=== PATIENT | male | born 1955 | race Caucasian/White ===

== ENCOUNTER 2023-08-14 13:16 | Emergency (ER) | payer OTHER, MEDICARE, SELFPAY ==
[2023-08-14 13:18] VITALS: BP 133/62
[2023-08-14 13:19] VITALS: BP 133/62
[2023-08-14 13:24] LABS: Glucose - Point of Care 346 mg/dl (70-99)
[2023-08-14 13:34] LABS: % Basophils 0.8 % (0-2); % Immature Granulocytes 0.1 % (0-0.5); % Monocytes 6.9 % (1.7-9.3); % Neutrophils 73.2 % (42.2-75.2); Absolute Basophils 0.1 10^3/uL (0-0.2); Absolute Eosinophils 0.1 10^3/uL (0-0.7); Absolute Lymphocytes 1.4 10^3/uL (1.2-3.4); Absolute Monocytes 0.5 10^3/uL (0.1-0.6); Absolute Neutrophils 5.6 10^3/uL (1.4-6.5); Hematocrit 36.3 % (39.0-52.0); Hemoglobin 12.9 g/dL (13.0-18.0); Mean Corp Hgb Conc. 35.5 g/dL (33.0-37.0); Mean Corpuscular Hgb 30.9 pg (27.0-31.0); Mean Corpuscular Volume 86.8 fL (80.0-94.0); Nucleated Red Blood Cells % 0 % (-); Platelet Count 205 10^3/uL (130-400); Red Blood Cell Count 4.18 10^6/uL (4.70-6.10); Red Cell Dist. Width 12.6 % (11.5-14.5); White Blood Cell Count 7.7 10^3/uL (4.8-10.8)
--- NOTE | 2023-08-14 13:54 | PHANOTE ---
Addendum entered by Isaura Matthews 08/14/23 14:44:
called retirement again only receive page for patient NovoLog one time dose today at 08/14/23 14units daily, page 2 was a double and page 3 was blank, spoke to viola again, she send she sent 7 pages totally but cover sheet say 3 only
Original Note:
med rec note- called retirement at [phone] spoke to viola and she we be faxing over med list
[2023-08-14 13:56] LABS: Blood Urea Nitrogen 27 mg/dl (9-20); Calcium 8.9 mg/dl (8.4-10.2); Carbon Dioxide 20 mmol/L (22-30); Chloride 105 mmol/L (98-107); Estimated Creatinine Clearance 115 ml/min; Glucose 349 mg/dl (70-99); Sodium 134 mmol/L (135-145); eGFR > 60.00
[2023-08-14 13:59] LABS: B-Hydroxybutyrate 0.13 mmol/L (0.02-0.27)
[2023-08-14 14:00] VITALS: BP 124/55
--- NOTE | 2023-08-14 14:45 | ED.GENMED ---
History of Present Illness
General
Chief Complaint: Blood Sugar Problem
Time Seen by Provider: 08/14/23 13:32
Travel History
Have you had any contact with someone who has COVID-19?: No
Do you have any symptoms of coronavirus? Fever > 100 degrees, chills, cough, shortness of breath, sore throat, loss of taste or smell, muscle aches, or headache?: No
History of Present Illness
History of Present Illness:
68-year-old male presents to the emergency department from [facility] due to high blood sugar. He denies complaints and states he requested not to come here. Blood sugar was apparently in the 500s this morning, was given 14
units of regular insulin and on arrival his blood sugar is 346. He denies any polyuria, polydipsia, chest pain, shortness of breath, nausea, vomiting, or dizziness.
Past History
Past History
ED Past Medical History: COPD, CVA, HTN, Hypercholesterolemia, IDDM and Psychiatric (Depression)
ED Past Surgical History: Appendectomy and Orthopedic
Social History
Tobacco: Non-smoker
Alcohol: None
Drug: None
Living: intermediate
Review of Systems
Review of Systems
Allergies reviewed?: Yes
All Other Systems: ROS reviewed and negative except as documented in HPI and ROS
Phy Exam
Physical Exam
Physical Exam:
GEN: Well appearing, NAD, WDWN
HEENT: Oral mucosa moist, no scleral icterus
Cardiac: Regular rate
Lung: No respiratory distress, no tachypnea
MSK: No gross deformity or injuries
Skin: Good color, no pallor or jaundice, no rashes
Neuro: AO x3, moves all extremities freely
Psych: Calm, cooperative
Course
Orders/Labs/Results
Orders:
Orders
08/14/23 13:27
B-Hydroxybutyrate Urgent
Basic Metabolic Panel Urgent
Complete Blood Count/With Diff Urgent
08/14/23 13:48
0.9% Sodium Chloride 1000 ml [Nss] 1,000 ml IV BOLUS
Insulin Aspart [NOVOLOG vial] 12 units SC NOW STA
08/14/23 14:46
Lorazepam [Ativan] 1 mg PO NOW STA
08/14/23 15:51
Bedside Glucose- Treatment ONCE
Abnormal Lab Results
08/14/23 08/14/23 08/14/23
13:22 13:27 15:54
RBC 4.18 L 10^6/uL
(4.70-6.10)
Hgb 12.9 L g/dL
(13.0-18.0)
Hct 36.3 L %
(39.0-52.0)
MPV 11.0 H fL
(7.4-10.4)
Lymphocytes % 18.0 L %
(20.5-51.1)
Sodium 134 L mmol/L
(135-145)
Carbon Dioxide 20 L mmol/L
(30)
BUN 27 H mg/dl
(03-13)
Glucose 349 H mg/dl
(99)
POC Glucose 346 H mg/dl 129 H mg/dl
(99) (70-99)
08/14/23 08/14/23 08/14/23
17:04 17:26 17:40
RBC
Hgb
Hct
MPV
Lymphocytes %
Sodium
Carbon Dioxide
BUN
Glucose
POC Glucose 66 L mg/dl 54 L* mg/dl 110 H mg/dl
(70-99) (70-99) (70-99)
08/14/23 13:27
08/14/23 13:27
Vital Signs
Initial and Last Documented VS:
Initial Vital Signs
BP
133/62
08/14/23 13:18
Last Documented Vital Signs
Temp Pulse Resp BP Pulse Ox
98.0 F 64 18 124/55 96
08/14/23 13:19 08/14/23 14:45 08/14/23 14:45 08/14/23 14:00 08/14/23 14:45
MDM/Problems Addressed
MDM/Problems Addressed:
After initial labs revealing normal anion gap and no evidence for acidosis the patient was given 12 units subcutaneous insulin according to his previous sliding scale. He was provided with food however the patient declined to eat. Repeat Accu-Chek
showed a blood sugar of 129, the patient was then encouraged to eat and drink the food provided to him however he again declined and repeat Accu-Chek 1 hour later was 66. The patient was then reinforced the importance of eating and drinking when
she finally obliged, he did have a period of hypoglycemia at 54 with no symptoms however repeat Accu-Chek prior to discharge was 110. Patient did consume further orange juice before the 110 was assessed. Given that we are well beyond 2 hours post
administration of his regular insulin his sugar will likely not dip any further and he is suitable for discharge back to his facility.
*Critical Care Note
Total Time (30-74mins, 75-104mins- exclusive of procedures): Not Applicable
ED Attending Note
-
Portions of this chart may have been created with voice recognition software.� Occasional wrong word or��sound alike� substitutions may have occurred due to the inherent limitations of voice recognition software.
Discharge Plan
Departure
Patient Disposition: Home (Routine Discharge)
Date of Disposition: 08/14/23
Time of Disposition: 16:20
Patient with high blood pressure during this ER visit?: No
Discharge Problem:
Acute hyperglycemia
Instructions: High Blood Sugar, Adult (DC)
Prescriptions:
No Action
sennosides [senna] 8.6 mg Tablet
17.2 mg PO HS
acetaminophen [Tylenol] 325 mg Tablet
650 mg PO Q4HPRN PRN (Reason: mild pain)
carvedilol [Coreg] 12.5 mg Tablet
12.5 mg PO BID
lidocaine 4 % Adhesive Patch,Medicated
1 patch TOPICAL BID
polyethylene glycol 3350 [Miralax] 17 gram Powder In Packet
17 g PO DAILYPRN PRN (Reason: constipation)
sucralfate [Carafate] 100 mg/mL Suspension
10 ml PO Q6H
lisinopril 20 mg Tablet
20 mg PO DAILY
ondansetron HCl [Zofran] 4 mg Tablet
4 mg PO Q6HPRN PRN (Reason: nausea)
meclizine 12.5 mg Tablet
12.5 mg PO Q8HPRN PRN (Reason: dizziness)
meclizine 12.5 mg Tablet
12.5 mg PO DAILY
clopidogrel [Plavix] 75 mg Tablet
75 mg PO DAILY
lorazepam 0.5 mg Tablet
0.5 mg PO BID
metoclopramide HCl [Reglan] 5 mg Tablet
5 mg PO TID
magnesium hydroxide [Milk of Magnesia] 400 mg/5 mL Suspension
2,400 mg PO [id number] PRN (Reason: if no bm on 3rd day)
amlodipine [Norvasc] 10 mg Tablet
10 mg PO DAILY
levothyroxine [Synthroid] 50 mcg Tablet
50 mcg PO DAILY
bisacodyl [Dulcolax (bisacodyl)] 10 mg Suppository
10 mg [place] DAILYPRN PRN (Reason: if no bm aftr mom)
pantoprazole [Protonix] 40 mg Tablet,Delayed Release (Dr/Ec)
40 mg PO DAILY
ferrous sulfate 325 mg (65 mg iron) Tablet
325 mg PO DAILY
Fleet Enema 19-7 gram/118 mL Enema
118 ml [place] DAILYPRN PRN (Reason: if no bm aftr dulcolax)
docusate sodium [Colace] 100 mg Capsule
200 mg PO DAILY
buspirone 7.5 mg Tablet
7.5 mg PO BID
ezetimibe [Zetia] 10 mg Tablet
10 mg PO HS
rosuvastatin [Crestor] 40 mg Tablet
40 mg PO HS
insulin glargine [Lantus Solostar U-100 Insulin] 100 unit/mL (3 mL) Insulin Pen
25 unit SC QPM
melatonin 5 mg Tablet
5 mg PO HS
baclofen 5 mg Tablet
5 mg PO Q8HPRN PRN (Reason: spasms)
sertraline 150 mg Capsule
150 mg PO DAILY
oxycodone-acetaminophen [Percocet] 5-325 mg tablet
1 tab PO Q8HPRN PRN (Reason: moderate pain)
oxycodone-acetaminophen 5-325 mg tablet
1 tab PO Q4H PRN (Reason: pain) Qty: 10 0RF
metformin 500 mg Tablet
500 mg PO BID
insulin aspart U-100 [Novolog FlexPen U-100 Insulin] 100 unit/mL (3 mL) Insulin Pen
1 sliding scale dose SC AC
Referrals:
Jus Cárdenas MD [Family Provider] -
Interventions
Interventions:
*Risk Screen - Suicide Last Done: 08/14/23 13:19
*General Assessment Last Done: 08/14/23 13:19
*Neglect/Abuse Screening Last Done: 08/14/23 13:19
ED- Fall Risk Assessment Last Done: 08/14/23 13:19
*ED COVID-19 Vaccine History Last Done: 08/14/23 17:40
*Nursing Disposition Last Done: 08/14/23 17:40
ED- Neurological Assessment Last Done: 08/14/23 15:59
Discharge Date and Time
Discharge Date/Time: 08/14/23 17:40
[2023-08-14] MEDS: NOVOLOG vial 12 UNITS SC (14:47)
[2023-08-14] MEDS: ATIVAN 1 MG PO (14:50)
[2023-08-14] MEDS: NSS 1000 IV (14:50)
[2023-08-14 15:56] LABS: Glucose - Point of Care 129 mg/dl (70-99)
[2023-08-14 17:05] LABS: Glucose - Point of Care 66 mg/dl (70-99)
[2023-08-14 17:29] LABS: Glucose - Point of Care 54 mg/dl (70-99)
[2023-08-14 17:41] LABS: Glucose - Point of Care 110 mg/dl (70-99)
== END 2023-08-14 17:40 | disposition home or self-care (01) ==
LOC: EMR 13:16
PROVIDERS: Emergency Medicine; EMERGENCY PHYSICIAN Emergency Medicine; FAMILY PHYSICIAN Internal Medicine
DX: E11.65 Type 2 diabetes mellitus with hyperglycemia (principal); Z79.4 Long term (current) use of insulin
CPT/HCPCS: 99284; 96360; 96372; 80048; 82010; 82962; 85025

== ENCOUNTER 2024-02-04 16:12 | Emergency (ER) | payer MEDICARE, OTHER, SELFPAY ==
[2024-02-04] VITALS (8 sets, daily range): BP systolic 117–160; BP diastolic 56–98; BMI 33.9
[2024-02-04 16:18] LABS: Glucose - Point of Care 90 mg/dl (70-99)
[2024-02-04 16:53] LABS: Glucose - Point of Care 92 mg/dl (70-99)
--- NOTE | 2024-02-04 17:02 | ED.GENMED ---
History of Present Illness
General
Chief Complaint: Blood Sugar Problem
Source: patient, ambulance crew, group home and group home records
Exam Limitations: altered mental status
Time Seen by Provider: 02/04/24 16:48
History of Present Illness
History of Present Illness:
68-year-old male from [facility] for low blood sugar
Patient with history of CVA, COPD, HTN, HLD, IDDM, PVD, anemia, anxiety/depression, past history of alcohol abuse presents via EMS obtunded.
I spoke with nursing salon supervisor Bianca at [facility]. She states that staff came into patient's room to find him unresponsive, had urinated all over himself, he was cold and clammy sugar checked it was 45, gave glucagon at 3:28 PM, glucose was
then 60, remained obtunded. EMS arrived and gave dextrose 50 g x 2 and a peanut butter jelly sandwich, glucose remained in the 60s. On arrival here glucose is 90, patient remains obtunded
She states he is typically alert and oriented, conversive, wheels himself around in his wheelchair. She states this is a definite mental change for him
When asked how he feels he states 1 'weak' and drifts back off to sleep.
Past History
Past History
ED Past Medical History: COPD, CVA, HTN, Hypercholesterolemia, IDDM and Psychiatric (Depression)
ED Past Surgical History: Appendectomy and Orthopedic
Social History
Tobacco: Non-smoker
Alcohol: None
Drug: None
Personal: Single
Living: group home
Review of Systems
Review of Systems
Allergies reviewed?: Yes
All Other Systems: ROS reviewed and negative except as documented in HPI and ROS
Constitutional: Denies fever
Respiratory: Denies trouble breathing
Cardiac: Denies chest pain
ABD/GI: Denies abdominal pain, vomiting or diarrhea
: Reports incontinence
Musculoskeletal: Reports edema (+1 pitting bilateral ankles)
Skin: Reports no symptoms
Neurological: Denies headache
Phy Exam
Physical Exam
Physical Exam:
GENERAL: No acute distress. A&Ox3.
CONSTITUTIONAL: Afebrile.
EYES: PERRL, conjunctivae normal
ENMT: dry mucus membranes, Pharynx nl
RESPIRATORY: Regular respirations, nonlabored, lungs clear.
CARDIOVASCULAR: Regular rate and rhythm, no murmurs, no rubs.
GI: Soft, obese, nontender, normal BS
MUSCULOSKELETAL: Well perfused. Bilateral +1 pitting ankles
SKIN: Warm, dry, pink
PSYCH: Depressed mood and affect. Sluggishly responds to questions, answers seem appropriate
NEUROLOGIC: Lethargic, follow commands, no focal neuro deficits. No focal neurological deficits
Course
Orders/Labs/Results
Orders:
Orders
02/04/24 17:10
Straight cath- Treatment ONCE
02/04/24 17:11
CT Head W/o Iv Contrast Urgent
Comment:
Reason For Exam: change in mental state
02/04/24 17:30
Complete Blood Count/With Diff Urgent
Comprehensive Metabolic Panel Urgent
Urinalysis Reflex To Culture Urgent
Date Specimen was Collected: 02/04/24
Time Specimen was Collected: 17:28
02/04/24 18:10
0.9% Sodium Chloride 500 ml [Nss] 500 ml IV BOLUS
Abnormal Lab Results
02/04/24 02/04/24 02/04/24
17:30 18:11 23:12
MPV 11.6 H fL
(7.4-10.4)
Absolute Monos (auto) 0.7 H 10^3/uL
(0.1-0.6)
Neutrophils % 75.4 H %
(42.2-75.2)
Lymphocytes % 15.5 L %
(20.5-51.1)
BUN 29 H mg/dl
(9-20)
Urine Bilirubin 1+ A
(Negative)
Urine Glucose Trace A
(Negative)
POC Glucose 182 H mg/dl 107 H mg/dl
(70-99) (70-99)
02/04/24 17:30
02/04/24 17:30
Vital Signs
Initial and Last Documented VS:
Initial Vital Signs
Pulse Resp BP Pulse Ox
65 18 143/98 99
02/04/24 16:15 02/04/24 16:15 02/04/24 16:15 02/04/24 16:15
Last Documented Vital Signs
Temp Pulse Resp BP Pulse Ox
97.5 F 80 19 149/70 95
02/04/24 18:14 02/05/24 00:00 02/05/24 00:00 02/04/24 23:00 02/04/24 23:30
MDM/Problems Addressed
Differential Diagnosis Includes:
hypoglycemia, CVA, UTI, dehydration
MDM/Problems Addressed:
68-year-old male from [facility] for low blood sugar
Patient with history of CVA, COPD, HTN, HLD, IDDM, PVD, anemia, anxiety/depression, past history of alcohol abuse presents via EMS obtunded.
I spoke with nursing salon supervisor Bianca at [facility]. She states that staff came into patient's room to find him unresponsive, had urinated all over himself, he was cold and clammy sugar checked it was 45, gave glucagon at 3:28 PM, glucose was
then 60, remained obtunded. EMS arrived and gave dextrose 50 g x 2 and a peanut butter jelly sandwich, glucose remained in the 60s. On arrival here glucose is 90, patient remains obtunded
She states he is typically alert and oriented, conversive, wheels himself around in his wheelchair. She states this is a definite mental change for him
When asked how he feels he states 1 'weak' and drifts back off to sleep.
5:20 PM:
And undressing patient to get his vital signs, he becomes more alert, he denies chest pain, shortness of breath, abdominal pain or nausea. Knows he's 'in the hospital' states '[place].' States 'blood sugar' when asked why he's here.
6:10 p.m.
Bedside glucose 182
Pt remains awake, appropriate
Head CT no acute findings
*Critical Care Note
Total Time (30-74mins, 75-104mins- exclusive of procedures): Not Applicable
ED Attending Note
-
Portions of this chart may have been created with voice recognition software.� Occasional wrong word or��sound alike� substitutions may have occurred due to the inherent limitations of voice recognition software.
Discharge Plan
Departure
Patient Disposition: [facility]/SNF
Date of Disposition: 02/04/24
Time of Disposition: 21:16
Patient with high blood pressure during this ER visit?: No
Condition: Good
Discharge Problem:
Hypoglycemia associated with diabetes
Instructions: Low blood sugar in people with diabetes
Prescriptions:
No Action
acetaminophen [Tylenol] 325 mg Tablet
650 mg PO Q4HPRN PRN (Reason: temp>100F)
carvedilol [Coreg] 12.5 mg Tablet
12.5 mg PO BID
lidocaine 4 % Adhesive Patch,Medicated
1 patch TOPICAL DAILY
meclizine 12.5 mg Tablet
12.5 mg PO DAILY
clopidogrel [Plavix] 75 mg Tablet
75 mg PO DAILY
lorazepam 0.5 mg Tablet
0.25 mg PO BID
magnesium hydroxide [Milk of Magnesia] 400 mg/5 mL Suspension
30 ml PO [id number] PRN (Reason: if no bm x 3 days)
amlodipine [Norvasc] 10 mg Tablet
10 mg PO DAILY
levothyroxine [Synthroid] 50 mcg Tablet
50 mcg PO DAILY
bisacodyl [Dulcolax (bisacodyl)] 10 mg Suppository
10 mg [place] DAILYPRN PRN (Reason: if mom is ineffective after 24hrs)
ferrous sulfate 325 mg (65 mg iron) Tablet
325 mg PO DAILY
Fleet Enema 19-7 gram/118 mL Enema
118 ml [place] DAILYPRN PRN (Reason: if dulcolax is ineffective after 24hrs)
docusate sodium [Colace] 100 mg Capsule
100 mg PO [id number] PRN (Reason: constipation)
ezetimibe [Zetia] 10 mg Tablet
10 mg PO HS
rosuvastatin [Crestor] 40 mg Tablet
40 mg PO HS
insulin glargine [Lantus Solostar U-100 Insulin] 100 unit/mL (3 mL) Insulin Pen
15 unit SC HS
insulin aspart U-100 [Novolog FlexPen U-100 Insulin] 100 unit/mL (3 mL) Insulin Pen
4 sliding scale dose SC AC
acetaminophen 325 mg Tablet
650 mg PO [id number] PRN (Reason: mild pain)
divalproex 250 mg tablet,delayed release (DR/EC)
250 mg PO DAILY
sucralfate 1 gram tablet
1 g PO DAILY
sertraline 100 mg tablet
100 mg PO DAILY
Guaifenesin DM 10-200 mg/5 mL Liquid
10 ml PO Q6HPRN PRN (Reason: cough)
divalproex 500 mg tablet,delayed release (DR/EC)
500 mg PO HS
pantoprazole 20 mg Tablet,Delayed Release (Dr/Ec)
20 mg PO DAILY
buspirone 10 mg tablet
10 mg PO TID
ibuprofen 200 mg Tablet
200 mg PO Q8HPRN PRN (Reason: mild to moderate pain)
lisinopril 40 mg Tablet
40 mg PO DAILY
sertraline 50 mg tablet
50 mg PO DAILY
insulin aspart U-100 [Novolog FlexPen U-100 Insulin] 100 unit/mL (3 mL) Insulin Pen
0 - 20 sliding scale dose SC ACHS
Rx Instructions:
if 70-99= 0; 100-149= 6; 150-199= 10; 200-249= 12; 250-299= 14; 300-349= 16; 350-399= 18; 400+ = 20
oxycodone 10 mg Tablet
10 mg PO Q8HPRN PRN (Reason: severe pain)
cholecalciferol (vitamin D3) 125 mcg (5,000 unit) Tablet
125 mcg PO DAILY
melatonin 10 mg Tablet
10 mg PO HS
Referrals:
Jus Cárdenas MD [Family Provider] -
Activity Restrictions/Additional Instructions:
Mr. Mahan blood sugar on discharge is 182.
He is awake, appropriate
Head CT unremarkable
His blood work shows mild dehydration so encourage fluids
Nothing worrisome in his workup here today.
Interventions
Interventions:
*Risk Screen - Suicide Last Done: 02/04/24 16:26
*General Assessment Last Done: 02/04/24 16:26
*Neglect/Abuse Screening Last Done: 02/04/24 16:26
ED- Fall Risk Assessment Last Done: 02/04/24 16:27
*ED COVID-19 Vaccine History Last Done: 02/04/24 16:26
*Nursing Disposition Last Done: 02/05/24 00:20
ED- Neurological Assessment Last Done: 02/04/24 16:26
Discharge Date and Time
Discharge Date/Time: 02/05/24 00:20
Print Language: MALIAN
[2024-02-04 17:37] LABS: % Basophils 0.3 % (0-2); % Immature Granulocytes 0.3 % (0-0.5); % Lymphocytes 15.5 % (20.5-51.1); % Monocytes 7.5 % (1.7-9.3); % Neutrophils 75.4 % (42.2-75.2); Absolute Eosinophils 0.1 10^3/uL (0-0.7); Absolute Lymphocytes 1.3 10^3/uL (1.2-3.4); Absolute Monocytes 0.7 10^3/uL (0.1-0.6); Absolute Neutrophils 6.5 10^3/uL (1.4-6.5); Hematocrit 42.9 % (39.0-52.0); Hemoglobin 14.8 g/dL (13.0-18.0); Mean Corp Hgb Conc. 34.5 g/dL (33.0-37.0); Mean Corpuscular Hgb 30.6 pg (27.0-31.0); Mean Corpuscular Volume 88.8 fL (80.0-94.0); Mean Platelet Volume 11.6 fL (7.4-10.4); Nucleated Red Blood Cells % 0 % (-); Platelet Count 234 10^3/uL (130-400); Red Blood Cell Count 4.83 10^6/uL (4.70-6.10); Red Cell Dist. Width 12.8 % (11.5-14.5); White Blood Cell Count 8.6 10^3/uL (4.8-10.8)
[2024-02-04 17:40] LABS: Urine Albumin Negative (Neg - Trace); Urine Bilirubin 1+ (Negative); Urine Character Clear (Clear); Urine Color Yellow; Urine Glucose Trace (Negative); Urine Ketone Negative (Negative); Urine Leukocyte Negative (Negative); Urine Nitrite Negative (Negative); Urine Occult Blood Negative (Negative); Urine Specific Gravity 1.015 (<1.030); Urine Urobilinogen Negative (Neg - 1+)
[2024-02-04 17:59] LABS: ALT (SGPT) 44 U/L (0-50); AST (SGOT) 37 U/L (17-59); Albumin 4.1 g/dl (3.5-5.0); Alkaline Phosphatase 91 U/L (38-126); Blood Urea Nitrogen 29 mg/dl (9-20); Calcium 9.1 mg/dl (8.4-10.2); Carbon Dioxide 30 mmol/L (22-30); Chloride 102 mmol/L (98-107); Estimated Creatinine Clearance 74 ml/min; Glucose 72 mg/dl (70-99); Potassium 4.5 mmol/L (3.5-5.1); Sodium 140 mmol/L (135-145); Total Bilirubin 0.3 mg/dl (0.2-1.3); Total Protein 6.4 g/dl (6.3-8.2); eGFR > 60.00
[2024-02-04 18:12] LABS: Glucose - Point of Care 182 mg/dl (70-99)
[2024-02-04 23:13] LABS: Glucose - Point of Care 107 mg/dl (70-99)
== END 2024-02-05 00:20 ==
LOC: EMR 16:12
PROVIDERS: Registered Nurse; EMERGENCY PHYSICIAN Emergency Medicine; FAMILY PHYSICIAN Internal Medicine
DX: E11.649 Type 2 diabetes mellitus with hypoglycemia without coma (principal); J44.9 Chronic obstructive pulmonary disease, unspecified; I10 Essential (primary) hypertension; E78.00 Pure hypercholesterolemia, unspecified; E11.51 Type 2 diabetes mellitus with diabetic peripheral angiopathy without gangrene; F41.8 Other specified anxiety disorders; Z86.73 Personal history of transient ischemic attack (TIA), and cerebral infarction without residual deficits; Z90.49 Acquired absence of other specified parts of digestive tract
CPT/HCPCS: 99284; 70450; 80053; 81003; 82962; 85025

== ENCOUNTER → 2024-09-10 15:02 | Outpatient (REF) | payer MEDICARE, OTHER, SELFPAY | LOC: RAD 15:02 | PROVIDERS: ATTENDING PHYSICIAN Internal Medicine; FAMILY PHYSICIAN Internal Medicine | DX: R41.82 Altered mental status, unspecified (principal) | CPT/HCPCS: 70450 ==

== ENCOUNTER 2024-09-11 11:42 | Emergency (ER) | payer MEDICARE, OTHER, SELFPAY ==
[2024-09-11] VITALS (7 sets, daily range): BP systolic 112–145; BP diastolic 57–68
[2024-09-11 11:47] LABS: Glucose - Point of Care 275 mg/dl (70-99)
--- NOTE | 2024-09-11 12:03 | ED.GENMED ---
History of Present Illness
<Luis Lawrence, DO - Last Filed: 09/12/24 21:45>
General
Chief Complaint: Change in Mental Status
Source: ambulance crew
Time Seen by Provider: 09/11/24 11:44
History of Present Illness
History of Present Illness:
69-year-old male presents to the emergency room from [facility]. Patient evidently sent due to progressive decline in his status. Patient's sister states he has had a decline in his ability to eat normal foods. He has been downgraded to a
pur�ed diet and they feel he still may be aspirating on a pur�ed diet. He seems more confused than normal. Transfer note indicates there was concern about 'hydrocephalus'. Patient did have a CAT scan yesterday as an outpatient. The
interpretation does suggest the patient may have normal pressure hydrocephalus. However in reviewing previous CT scans radiology felt that changes were stable when compared to previous imaging. Patient himself is not able to provide any specific
history.
Past History
<Luis Lawrence, DO - Last Filed: 09/12/24 21:45>
Past History
ED Past Medical History: COPD, CVA, HTN, Hypercholesterolemia, IDDM and Psychiatric (Depression)
ED Past Surgical History: Appendectomy and Orthopedic
Social History
Tobacco: Non-smoker
Alcohol: None
Drug: None
Personal: Single
Living: custodial
Phy Exam
<Luis Lawrence, DO - Last Filed: 09/12/24 21:45>
Physical Exam
Physical Exam:
General: Awake, Alert, Oriented X1. Appears stated age
Vitals: unremarkable
Head: Atraumatic
Eyes: Pupils equal, EOMI
Throat: Airway intact, no exudates
Neck: Trachea midline
Lungs: Clear and equal b/l
Heart: Regular rate, no murmurs
Abd: Soft, Nontender, No pulsatile mass
Neuro: Nonfocal
Skin: Warm, dry, no rash
Extremities: pulses equal b/l, no edema
Course
<Luis Lawrence, - Last Filed: 09/12/24 21:45>
Orders/Labs/Results
Orders:
Orders
09/11/24 12:00
Complete Blood Count/With Diff Urgent
Comprehensive Metabolic Panel Urgent
Magnesium Urgent
Phos [Phosphorus] Urgent
TSH Reflex To Free T4 Urgent
09/11/24 12:19
0.9% Sodium Chloride 500 ml [Nss] 500 ml IV BOLUS
Abnormal Lab Results
09/11/24 09/11/24
11:45 12:00
RBC 4.18 L 10^6/uL
(4.70-6.10)
Hgb 12.8 L g/dL
(13.0-18.0)
Hct 37.8 L %
(39.0-52.0)
MPV 11.4 H fL
(7.4-10.4)
Absolute Neuts (auto) 7.5 H 10^3/uL
(1.4-6.5)
Absolute Lymphs (auto) 1.1 L 10^3/uL
(1.2-3.4)
Neutrophils % 81.2 H %
(42.2-75.2)
Lymphocytes % 11.6 L %
(20.5-51.1)
Potassium 5.3 H mmol/L
(3.5-5.1)
Chloride 97 L mmol/L
(98-107)
BUN 25 H mg/dl
(9-20)
Glucose 299 H mg/dl
(70-99)
Total Protein 5.8 L g/dl
(6.3-8.2)
POC Glucose 275 H mg/dl
(70-99)
09/11/24 12:00
09/11/24 12:00
Vital Signs
Initial and Last Documented VS:
Initial Vital Signs
BP
112/65
09/11/24 11:45
Last Documented Vital Signs
Temp Pulse Resp BP Pulse Ox
98.8 F 73 19 145/68 94
09/11/24 11:46 09/11/24 16:15 09/11/24 16:15 09/11/24 16:00 09/11/24 16:15
<Candi Mccrary, DO - Last Filed: 09/11/24 17:35>
Orders/Labs/Results
Orders:
Orders
09/11/24 12:00
Complete Blood Count/With Diff Urgent
Comprehensive Metabolic Panel Urgent
Magnesium Urgent
Phos [Phosphorus] Urgent
TSH Reflex To Free T4 Urgent
09/11/24 12:19
0.9% Sodium Chloride 500 ml [Nss] 500 ml IV BOLUS
Abnormal Lab Results
09/11/24 09/11/24
11:45 12:00
RBC 4.18 L 10^6/uL
(4.70-6.10)
Hgb 12.8 L g/dL
(13.0-18.0)
Hct 37.8 L %
(39.0-52.0)
MPV 11.4 H fL
(7.4-10.4)
Absolute Neuts (auto) 7.5 H 10^3/uL
(1.4-6.5)
Absolute Lymphs (auto) 1.1 L 10^3/uL
(1.2-3.4)
Neutrophils % 81.2 H %
(42.2-75.2)
Lymphocytes % 11.6 L %
(20.5-51.1)
Potassium 5.3 H mmol/L
(3.5-5.1)
Chloride 97 L mmol/L
(98-107)
BUN 25 H mg/dl
(9-20)
Glucose 299 H mg/dl
(70-99)
Total Protein 5.8 L g/dl
(6.3-8.2)
POC Glucose 275 H mg/dl
(70-99)
09/11/24 12:00
09/11/24 12:00
Vital Signs
Initial and Last Documented VS:
Initial Vital Signs
BP
112/65
09/11/24 11:45
Last Documented Vital Signs
Temp Pulse Resp BP Pulse Ox
98.8 F 73 19 145/68 94
09/11/24 11:46 09/11/24 16:15 09/11/24 16:15 09/11/24 16:00 09/11/24 16:15
<Luis Lawrence DO - Last Filed: 09/12/24 21:45>
MDM/Problems Addressed
Differential Diagnosis Includes:
uti, electrolyte abn, progression of dementia, NPH
MDM/Problems Addressed:
It appears the patient has a progressive decline in his functional status. However there is no evidence of a acute abnormality that would benefit from hospitalization at this time. The transferring physician expressed concern about CAT scan report
yesterday which mentioned possible normal pressure hydrocephalus. Patient has had changes on previous imaging at least over the past 2 years and he had imaging yesterday was unchanged from those. Therefore there is no urgent need for intervention.
Discussed the patient's presentation with neurology. He recommends no further workup in the emergency room and he will see the patient in the office.
<Luis Lawrence DO - Last Filed: 09/12/24 21:45>
*Pulse Oximetry
Patient hypoxic: no
*Critical Care Note
Total Time (30-74mins, 75-104mins- exclusive of procedures): Not Applicable
<Candi Mccrary DO - Last Filed: 09/11/24 17:35>
Update Note
Update Note:
Attending Signout Note (Candi Mccrary DO)
69-year-old male with dementia sent from nursing facility for abnormal CT which showed concern for normal pressure hydrocephalus. Patient had repeat CT imaging here, unchanged from prior. Patient without acute complaints. In discussion with
neurology, outpatient workup follow-up. Hemodynamically stable. Patient pending urinalysis, however patient incontinent. Multiple attempts to get urine. Patient however is refusing straight cath. Denies any acute urinary complaints, afebrile
without concern for systemic infection. Plan for discharge
ED Attending Note
<Luis Lawrence DO - Last Filed: 09/12/24 21:45>
-
Portions of this chart may have been created with voice recognition software.� Occasional wrong word or��sound alike� substitutions may have occurred due to the inherent limitations of voice recognition software.
Discharge Plan
Departure
Patient Disposition: Home (Routine Discharge)
Date of Disposition: 09/11/24
Time of Disposition: 17:31
Patient with high blood pressure during this ER visit?: No
Condition: Good
Discharge Problem:
Altered mental status
Instructions: Altered Mental Status (DC)
Prescriptions:
No Action
acetaminophen [Tylenol] 325 mg Tablet
650 mg PO Q4HPRN PRN (Reason: temp>100F)
carvedilol [Coreg] 12.5 mg Tablet
12.5 mg PO BID
meclizine 12.5 mg Tablet
12.5 mg PO DAILY
clopidogrel [Plavix] 75 mg Tablet
75 mg PO DAILY
magnesium hydroxide [Milk of Magnesia] 400 mg/5 mL Suspension
30 ml PO [id number] PRN (Reason: if no bm x 3 days)
amlodipine [Norvasc] 10 mg Tablet
10 mg PO DAILY
levothyroxine [Synthroid] 50 mcg Tablet
50 mcg PO DAILY
bisacodyl [Dulcolax (bisacodyl)] 10 mg Suppository
10 mg [place] DAILYPRN PRN (Reason: if mom is ineffective after 24hrs)
ferrous sulfate 325 mg (65 mg iron) Tablet
325 mg PO DAILY
Fleet Enema 19-7 gram/118 mL Enema
118 ml NJ DAILYPRN PRN (Reason: if dulcolax is ineffective after 24hrs)
ezetimibe [Zetia] 10 mg Tablet
10 mg PO HS
rosuvastatin [Crestor] 40 mg Tablet
40 mg PO HS
insulin glargine [Lantus Solostar U-100 Insulin] 100 unit/mL (3 mL) Insulin Pen
25 unit SC DAILY
insulin aspart U-100 [Novolog FlexPen U-100 Insulin] 100 unit/mL (3 mL) Insulin Pen
4 sliding scale dose SC ACHS
acetaminophen 325 mg Tablet
650 mg PO [id number] PRN (Reason: mild pain)
divalproex 250 mg tablet,delayed release (DR/EC)
250 mg PO DAILY
sucralfate 1 gram tablet
1 g PO DAILY
sertraline 100 mg tablet
100 mg PO DAILY
dextromethorphan-guaifenesin [Guaifenesin DM] 10-200 mg/5 mL Liquid
10 ml PO Q6HPRN PRN (Reason: cough)
divalproex 500 mg tablet,delayed release (DR/EC)
500 mg PO HS
pantoprazole 20 mg Tablet,Delayed Release (Dr/Ec)
20 mg PO DAILY
buspirone 10 mg tablet
10 mg PO TID
ibuprofen 200 mg Tablet
200 mg PO Q8HPRN PRN (Reason: mild to moderate pain)
lisinopril 40 mg Tablet
40 mg PO DAILY
sertraline 50 mg tablet
50 mg PO DAILY
oxycodone 10 mg Tablet
10 mg PO Q8HPRN PRN (Reason: severe pain)
cholecalciferol (vitamin D3) 125 mcg (5,000 unit) Tablet
125 mcg PO DAILY
melatonin 10 mg Tablet
10 mg PO HS
mupirocin 2 % Ointment
1 applic TOPICAL DAILY
insulin glargine [Lantus Solostar U-100 Insulin] 100 unit/mL (3 mL) Insulin Pen
8 unit SC HS
Referrals:
UNKNOWN - PT DOES,NOT KNOW [Family Provider] -
Activity Restrictions/Additional Instructions:
Pt labs here in the ER are stable. The changes on the CAT scan from yesterday have been present on previous imaging over the past 2 years. I discussed Mr. Schmitz's presentation with Dr. Verduzco. He believes no further workup is required in the
emergency room but that he will see the patient in the office and a decision can be made as to whether the patient would benefit from [employer] shunt or any other treatment.
Interventions
Interventions:
*Risk Screen - Suicide Last Done: 09/11/24 11:46
*General Assessment Last Done: 09/11/24 11:46
*Neglect/Abuse Screening Last Done: 09/11/24 11:46
*ED- Fall Risk Assessment Last Done: 09/11/24 11:46
*ED COVID-19 Vaccine History Last Done: 09/11/24 11:46
*Nursing Disposition Last Done: 09/11/24 20:20
ED- Neurological Assessment Last Done: 09/11/24 13:26
ED- Cardiac Assessment Last Done: 09/11/24 13:26
ED Swallowing Screen Last Done: 09/11/24 13:26
Discharge Date and Time
Discharge Date/Time: 09/11/24 20:21
Print Language: LITHUANIAN
[2024-09-11 12:08] LABS: % Basophils 0.3 % (0-2); % Eosinophils 0.3 % (0-6); % Immature Granulocytes 0.2 % (0-0.5); % Lymphocytes 11.6 % (20.5-51.1); % Monocytes 6.4 % (1.7-9.3); % Neutrophils 81.2 % (42.2-75.2); Absolute Lymphocytes 1.1 10^3/uL (1.2-3.4); Absolute Monocytes 0.6 10^3/uL (0.1-0.6); Absolute Neutrophils 7.5 10^3/uL (1.4-6.5); Hematocrit 37.8 % (39.0-52.0); Hemoglobin 12.8 g/dL (13.0-18.0); Mean Corp Hgb Conc. 33.9 g/dL (33.0-37.0); Mean Corpuscular Hgb 30.6 pg (27.0-31.0); Mean Corpuscular Volume 90.4 fL (80.0-94.0); Mean Platelet Volume 11.4 fL (7.4-10.4); Nucleated Red Blood Cells % 0 % (-); Platelet Count 161 10^3/uL (130-400); Red Blood Cell Count 4.18 10^6/uL (4.70-6.10); Red Cell Dist. Width 13.4 % (11.5-14.5); White Blood Cell Count 9.2 10^3/uL (4.8-10.8)
[2024-09-11 12:18] LABS: ALT (SGPT) 19 U/L (0-50); AST (SGOT) 21 U/L (17-59); Albumin 3.8 g/dl (3.5-5.0); Alkaline Phosphatase 81 U/L (38-126); Blood Urea Nitrogen 25 mg/dl (9-20); Carbon Dioxide 30 mmol/L (22-30); Chloride 97 mmol/L (98-107); Estimated Creatinine Clearance 76 ml/min; Glucose 299 mg/dl (70-99); Magnesium 2.2 mg/dl (1.6-2.3); Phosphorus 3.9 mg/dl (2.5-4.5); Potassium 5.3 mmol/L (3.5-5.1); Sodium 136 mmol/L (135-145); Total Bilirubin 0.6 mg/dl (0.2-1.3); Total Protein 5.8 g/dl (6.3-8.2); eGFR > 60.00
[2024-09-11] MEDS: NSS 500 IV (12:43)
[2024-09-11 12:48] LABS: TSH Reflex To Free T4 2.16 uIU/ml (0.47-4.68)
== END 2024-09-11 20:21 | disposition home or self-care (01) ==
LOC: EMR 11:42
PROVIDERS: EMERGENCY PHYSICIAN Emergency Medicine
DX: R41.82 Altered mental status, unspecified (principal); J44.9 Chronic obstructive pulmonary disease, unspecified; I10 Essential (primary) hypertension; E78.00 Pure hypercholesterolemia, unspecified; E11.9 Type 2 diabetes mellitus without complications; F03.93 Unspecified dementia, unspecified severity, with mood disturbance; F32.A Depression, unspecified; Z86.73 Personal history of transient ischemic attack (TIA), and cerebral infarction without residual deficits; Z90.49 Acquired absence of other specified parts of digestive tract
CPT/HCPCS: 99283; 96360; 80053; 82962; 83735; 84100; 84443; 85025

== ENCOUNTER 2024-11-01 13:04 | Inpatient (IN) | payer MEDICARE, OTHER, SELFPAY ==
[2024-11-01] VITALS (15 sets, daily range): BP systolic 107–150; BP diastolic 43–107
[2024-11-01 09:19] LABS: Glucose - Point of Care 116 mg/dl (70-99)
[2024-11-01 09:29] LABS: % Basophils 0.7 % (0-2); % Eosinophils 2.4 % (0-6); % Immature Granulocytes 0.2 % (0-0.5); % Lymphocytes 26.6 % (20.5-51.1); % Neutrophils 62.1 % (42.2-75.2); Absolute Eosinophils 0.1 10^3/uL (0-0.7); Absolute Lymphocytes 1.5 10^3/uL (1.2-3.4); Absolute Monocytes 0.4 10^3/uL (0.1-0.6); Absolute Neutrophils 3.4 10^3/uL (1.4-6.5); Hematocrit 36.8 % (39.0-52.0); Hemoglobin 12.4 g/dL (13.0-18.0); Mean Corp Hgb Conc. 33.7 g/dL (33.0-37.0); Nucleated Red Blood Cells % 0 % (-); Platelet Count 216 10^3/uL (130-400); Red Cell Dist. Width 13.9 % (11.5-14.5); White Blood Cell Count 5.5 10^3/uL (4.8-10.8)
--- NOTE | 2024-11-01 09:33 | ED.GENMED ---
History of Present Illness
General
Chief Complaint: Seizure
Source: records, ambulance crew, shelter and other (Sister)
Exam Limitations: clinical condition
Time Seen by Provider: 11/01/24 09:06
History of Present Illness
History of Present Illness:
Staff had gone into his room. He started staring up at the ceiling grabbing at things. They checked his blood sugar which was 58. Shortly after that he had a tonic-clonic seizure that lasted about a minute. No history of seizures. Recent shunt
placed at [place]. Has been doing okay and at baseline per the sister.
Past History
Past History
ED Past Medical History: COPD, CVA, HTN, Hypercholesterolemia, IDDM and Psychiatric (Depression)
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
Social History
Tobacco: Non-smoker
Alcohol: None
Drug: None
Personal: Single
Living: shelter
Review of Systems
Review of Systems
Unable to obtain full review of systems at this time due to: due to acuity
All Other Systems: Not applicable
Phy Exam
Physical Exam
Physical Exam:
GENERAL: Alert and oriented in no apparent distress. Shunt right side of the head. Old for stated age
EYE: Orbits normal.
NECK: Supple, no significant adenopathy.
ENT: Pharynx without erythema. Mild swelling left side of the tongue.
CARDIAC: Regular rate and rhythm without any obvious murmurs.
LUNGS: Clear breath sounds,normal
ABDOMEN: Soft, without focal tenderness or distention
NEUROLOGICAL: Alert and oriented x 1, grossly non-focal
SKIN: Warm and dry, no rash or lesion, no discoloration, skin intact.
MUSCULOSKELETAL: No edema,no deformity.Good color
PSYCH: Normal and appropriate interaction.
Course
Orders/Labs/Results
Orders:
Orders
11/01/24 09:18
Electrocardiogram (*1) Stat
Reason for Study: Other
Other Reason for Exam: neuro symptoms
CT Head W/o Iv Contrast Urgent
Comment:
Reason For Exam: Seizure/recent shunt
Cardiac Monitoring- Treatment ONCE
EKG- Treatment ONCE
IV Insert/Care/Rem.- Treatment PRN
CXR Port [CR Chest Portable - 1 View] Urgent
Comment:
Reason For Exam: Seizure cough hypoxia
Reason Study Needs to be Portable: Patient Unstable
O2 Therapy [RESP] Stat
Titrate/Wean O2 to maintain O2 sat greater than (%): 93
Pulse Ox/cont/shift [RESP] Stat
Quantity: 1
11/01/24 09:21
Basic Metabolic Panel Urgent
Complete Blood Count/With Diff Urgent
11/01/24 09:28
Depakane Urgent
11/01/24 09:51
CT Chest PE Study Urgent
Comment:
Reason For Exam: Hypoxia/near syncope
11/01/24 09:55
COVID-19 Antigen Urgent
Source: Nasal Swab
Influenza A+B Rapid Molecular Urgent
SAIDA Source: Nasal Swab
Specimen Description:
11/01/24 12:08
Magnesium Routine
TSH Reflex To Free T4 Routine
Total CK [Creatine Phosphokinase] Routine
11/01/24 12:11
EEG Routine Routine
Reason for Exam: Seizure
11/01/24 12:14
Drug Screen, Urine [Urine Drug Abuse Screen] Routine
Urinalysis Routine
Valproate Sodium [Depacon] 1,000 mg 0.9% Sodium Chloride 50 ml [Nss] 50 ml IV NOW
11/01/24 12:[address] Non Medication Order As Directed
Physician Order: please perform medication reconciliation (home med list)
11/01/24 12:45
Admit/Transfer Patient As Directed
Co-Sign Provider:
Level of Care: Inpatient admission
Assign to:: IMU- Intermediate Care
Physician / Group: Gilmer Avalos - hospitalists
Diagnosis: tonic clonic seizure, hypoglycemia
Reason for Hospitalization: tonic clonic seizure, hypoglycemia
Expected length of stay greater than two midnights?: Yes
ELOS- Estimated Length of Stay in days: 2
I certify the patient meets the requirements for IP care: Yes
11/01/24 12:46
PRN Pain Medication Management As Directed
May give lesser potent ordered pain med per pt: Yes
preference::
Protocol:: Medication orders for pain may be administered in a
manner that supports deferring to patient preference
when the pt is:
- Requesting an ordered lesser potent pain medication.
Least to most potent pain medications are defined
as: acetaminophen < NSAID < tramadol < opioids
(morphine, oxycodone, hydromorphone).
- Requesting a lesser dose of the same medication IF
ORDERED.
- Requesting a less intrusive route of administration
if both routes are prescribed by the provider (PO <
IV).
11/01/24 12:47
Code Status As Directed
Resuscitation Status: Full Code
11/01/24 13:00
Thiamine Injection 100 mg IV DAILY
Abnormal Lab Results
11/01/24 11/01/24 11/01/24
09:17 09:21 09:28
RBC 4.00 L 10^6/uL
(4.70-6.10)
Hgb 12.4 L g/dL
(13.0-18.0)
Hct 36.8 L %
(39.0-52.0)
MPV 11.0 H fL
(7.4-10.4)
Glucose 139 H mg/dl
(70-99)
Valproic Acid 37.4 L ug/ml
(50.0-120.0)
POC Glucose 116 H mg/dl
(70-99)
11/01/24 09:21
11/01/24 09:21
Vital Signs
Initial and Last Documented VS:
Initial Vital Signs
Temp Pulse Resp BP Pulse Ox
97.7 F 68 20 132/75 85
11/01/24 09:07 11/01/24 09:07 11/01/24 09:07 11/01/24 09:07 11/01/24 09:07
Last Documented Vital Signs
Temp Pulse Resp BP Pulse Ox
97.7 F 63 16 150/85 100
11/01/24 09:07 11/01/24 11:00 11/01/24 11:00 11/01/24 11:00 11/01/24 11:00
*Radiology
Radiology exam reviewed: preliminary read by ED provider (Negative chest x-ray) and radiology read reviewed (CT head stable. Pericardial effusion/pneumonitis. No pulmonary emboli)
*Pulse Oximetry
Patient hypoxic: yes
*EKG
Interpreted by ED Provider?: Yes
Interpretation: normal
Comparison EKG: no changes
Heart Rate: 70
Rate: normal
Rhythm: sinus
Hinkle: normal axis
Interval: normal interval
Ischemia: no ischemia
*Analytics Lead Interpretation
Rate: normal
Interpretation: normal
Heart Rate: 68
Rhythm: sinus
*Critical Care Note
Total Time (30-74mins, 75-104mins- exclusive of procedures): 40
Update Note
Update Note:
1105... Patient has remained stable. No specific further seizures. Alert to name and knows he is in the hospital. He did say [facility] first. New onset seizure. [employer] SUPER[employer] shunt appears to be stable. CT scan improved. Pneumonitis pericardial effusion
by CT chest. Admission for further care
Discussed with neurology and neurosurgery. Medically stable. Rechecked multiple times. No further seizures
ED Attending Note
-
Portions of this chart may have been created with voice recognition software.� Occasional wrong word or��sound alike� substitutions may have occurred due to the inherent limitations of voice recognition software.
Discharge Plan
Departure
Patient Disposition: Admit
Date of Disposition: 11/01/24
Time of Disposition: 11:04
Presentation/result/management discussed w/ accepting MD/DO: Hospitalist
Discharge Problem:
New onset seizure, Hypoxia, Recent [employer] SUPER[employer] shunt, Pericardial effusion, Pneumonitis
Prescriptions:
No Action
acetaminophen [Tylenol] 325 mg Tablet
650 mg PO Q4HPRN PRN (Reason: temp>100F)
carvedilol [Coreg] 12.5 mg Tablet
12.5 mg PO BID
meclizine 12.5 mg Tablet
12.5 mg PO DAILY
clopidogrel [Plavix] 75 mg Tablet
75 mg PO DAILY
magnesium hydroxide [Milk of Magnesia] 400 mg/5 mL Suspension
30 ml PO [id number] PRN (Reason: if no bm x 3 days)
amlodipine [Norvasc] 10 mg Tablet
10 mg PO DAILY
levothyroxine [Synthroid] 50 mcg Tablet
50 mcg PO DAILY
bisacodyl [Dulcolax (bisacodyl)] 10 mg Suppository
10 mg [place] DAILYPRN PRN (Reason: if mom is ineffective after 24hrs)
ferrous sulfate 325 mg (65 mg iron) Tablet
325 mg PO DAILY
Fleet Enema 19-7 gram/118 mL Enema
118 ml ND DAILYPRN PRN (Reason: if dulcolax is ineffective after 24hrs)
ezetimibe [Zetia] 10 mg Tablet
10 mg PO HS
rosuvastatin [Crestor] 40 mg Tablet
40 mg PO HS
insulin glargine [Lantus Solostar U-100 Insulin] 100 unit/mL (3 mL) Insulin Pen
25 unit SC DAILY
insulin aspart U-100 [Novolog FlexPen U-100 Insulin] 100 unit/mL (3 mL) Insulin Pen
4 sliding scale dose SC ACHS
acetaminophen 325 mg Tablet
650 mg PO [id number] PRN (Reason: mild pain)
divalproex 250 mg tablet,delayed release (DR/EC)
250 mg PO DAILY
sucralfate 1 gram tablet
1 g PO DAILY
sertraline 100 mg tablet
100 mg PO DAILY
dextromethorphan-guaifenesin [Guaifenesin DM] 10-200 mg/5 mL Liquid
10 ml PO Q6HPRN PRN (Reason: cough)
divalproex 500 mg tablet,delayed release (DR/EC)
500 mg PO HS
pantoprazole 20 mg Tablet,Delayed Release (Dr/Ec)
20 mg PO DAILY
buspirone 10 mg tablet
10 mg PO TID
ibuprofen 200 mg Tablet
200 mg PO Q8HPRN PRN (Reason: mild to moderate pain)
lisinopril 40 mg Tablet
40 mg PO DAILY
sertraline 50 mg tablet
50 mg PO DAILY
oxycodone 10 mg Tablet
10 mg PO Q8HPRN PRN (Reason: severe pain)
cholecalciferol (vitamin D3) 125 mcg (5,000 unit) Tablet
125 mcg PO DAILY
melatonin 10 mg Tablet
10 mg PO HS
mupirocin 2 % Ointment
1 applic TOPICAL DAILY
insulin glargine [Lantus Solostar U-100 Insulin] 100 unit/mL (3 mL) Insulin Pen
8 unit SC HS
Referrals:
Jus Cárdenas MD [Family Provider] -
Interventions
Interventions:
*Risk Screen - Suicide Last Done: 11/01/24 09:07
*General Assessment Last Done: 11/01/24 09:07
*Neglect/Abuse Screening Last Done: 11/01/24 09:07
ED- Cardiac Assessment Last Done: 11/01/24 10:00
ED- Neurological Assessment Last Done: 11/01/24 10:00
ED- Pulmonary Assessment Last Done: 11/01/24 10:00
Discharge Date and Time
Print Language: IRISH
[2024-11-01 09:42] LABS: Blood Urea Nitrogen 17 mg/dl (9-20); Calcium 8.8 mg/dl (8.4-10.2); Carbon Dioxide 30 mmol/L (22-30); Chloride 104 mmol/L (98-107); Glucose 139 mg/dl (70-99); Potassium 4.5 mmol/L (3.5-5.1); Sodium 139 mmol/L (135-145); eGFR > 60.00
[2024-11-01 09:53] LABS: Depakane 37.4 ug/ml (50.0-120.0)
[2024-11-01 10:22] LABS: COVID-19 Antigen Negative (Negative)
--- NOTE | 2024-11-01 11:53 | CON.NEURO ---
Consultation
Order
Date of Consultation: 11/01/24
Requesting Provider: Marco Hernandez MD
Reason for Consult: Seizure
Neurology Consultation Note.
HPI: This is a 69-year-old RH man who presented to [facility] on 11/01/2024 with seizures.
The patient reports a headache that started today. He describes it as 'bad' but provides no further details about its characteristics or associated symptoms. Mr. Schmitz mentions having a seizure today, though he is unsure if this is his first seizure
or if he has had seizures in the past. He is not sure about the indications for Depakote.
Regarding his functional status, Mr. Schmitz has been using a wheelchair for mobility for the past year. Prior to [facility] a [place], he lived with his family.
Mr. Schmitz had a witnessed GTC lasting for about 1 minute at [facility]. FS at that time reportedly was 58.
ER VS: 132/75-150/85, 68, afebrile, 84�85% on 4 L of oxygen per
PDMP: Oxycodone 10 mg 81 tablets filled in on , lorazepam 0.5 mg 15 tablets filled in on 05/05/2024
Labs: Glucose�139, VPA level�37.4 (50.0-120.0), normal WBCs, sodium, platelet
CT head wo contrast-R subdural hygroma, right CORRECTIONAL SUPERVISOR shunt, atrophy
CT chest-pericardial effusion/ascites
PMH: COPD, type I DM, TIA, L5 compression fracture, HTN, DLP, hypothyroidism, axonal polyneuropathy, retinopathy,GERD, KADIE, vitamin D deficiency, insomnia, alcohol use disorder in remission, left Colles' fracture
PSH: R VPS, appendectomy
SH: has 2 children, resides at [facility], non-smoker;former information systems technician/executive associate at [employer]; wheelchair-bound
All: Penicillins, codeine
ROS: Constitutional: Negative. Negative for chills, fever and unexpected weight change.
HENT: Negative for ear pain, hearing loss, tinnitus and trouble swallowing.
Eyes: Negative. Negative for photophobia, pain and visual disturbance.
Respiratory: Negative for cough, choking and shortness of breath.
Cardiovascular: Negative for chest pain, palpitations and leg swelling.
Gastrointestinal: Negative for abdominal pain and vomiting.
Endocrine: Negative. Negative for cold intolerance.
Genitourinary: Negative for dysuria, flank pain and urgency.
Musculoskeletal: Negative for back pain, gait problem, neck pain and neck stiffness.
Allergic/Immunologic: Negative. Negative for immunocompromised state.
Neurological: Diffuse seizure, headache
Psychiatric/Behavioral: Negative for behavioral problems, confusion and hallucinations.
General: Well developed. In no acute distress.
Cardio: Regular rate and rhythm without murmur. Extremities are without cyanosis or edema.
Neuro:
Mental Status: Alert, oriented to self, year, president. Did not know the month, date, date. Impaired attention. Increased processing time. Follows simple requests. No hemineglect.
Cranial Nerves: Pupils are equally round, surgical. EOMs full. Visual campos full to confrontation. No ptosis. No nystagmus. Right LMN palsy. normal hearing AU. The palate elevated well. SCMs and traps 5/5. Tongue midline. Edentulous
dysarthria
Motor: Normal bulk and tone. No pronator or arm drift. Strength 5/5 throughout. No clonus.
Reflexes: Trace throughout
Sensory: Absent vibration and proprioception at the toes, absent vibration at the ankles and reduced at the knees
Coordination: No dysmetria or tremor.
Gait: deferred
Left arm ecchymosis
Assessment and Plan:
I. Probably symptomatic seizure.
II. Right subdural hygroma
III. Multifactorial encephalopathy (postictal, metabolic, likely toxic)
IV. Type I DM with hypoglycemia
- Seizure precaution
- Avoid medications known to lower seizure threshold
- Please check urine tox, CK, magnesium, UA, vitamin B12, folate, TFTs
- Valproic acid load 1g once followed by 500 mg BID
- Start thiamine
- Continue aspirin 81 mg once a day
- IV Toradol 30 mg, Reglan 10 mg, Benadryl 25 mg Q8h PRN for moderate to severe headache.
- Routine EEG
- Will follow
I personally reviewed all radiology and labs along with past medical records pertinent to current medical problems. Total time spent in patient care is 60 minutes.
Thank you for allowing us to participate in the care of this patient. We will continue to follow. Please do not hesitate to contact us with any questions or concerns.
Subjective/Objective
Subjective Data
Date of Service: November 01, 2024
Objective Data
Vital Signs
Temp Pulse Resp BP Pulse Ox
36.5 C 63 16 150/85 100
11/01/24 09:07 11/01/24 11:00 11/01/24 11:00 11/01/24 11:00 11/01/24 11:00
Lab Results
11/01/24 09:21
11/01/24 09:21
Sodium 139 mmol/L (135-145) 11/01/24 09:21
Potassium 4.5 mmol/L (3.5-5.1) 11/01/24 09:21
BUN 17 mg/dl (9-20) 11/01/24 09:21
Glucose 139 mg/dl (70-99) H 11/01/24 09:21
Calcium 8.8 mg/dl (8.4-10.2) 11/01/24 09:21
Patient Allergies
codeine Allergy (Verified 11/01/24 09:13)
Unknown
Penicillins Allergy (Verified 11/01/24 09:13)
Unknown
Medications
-
Home Medications
�Medication �Instructions �Recorded
acetaminophen 325 mg tablet 650 mg PO Q4HPRN PRN temp>100F 06/30/22
(Tylenol)
amlodipine 10 mg tablet (Norvasc) 10 mg PO DAILY 06/30/22
bisacodyl 10 mg rectal suppository 10 mg MT DAILYPRN PRN if mom is 06/30/22
(Dulcolax (bisacodyl)) ineffective after 24hrs
carvedilol 12.5 mg tablet (Coreg) 12.5 mg PO BID 06/30/22
clopidogrel 75 mg tablet (Plavix) 75 mg PO DAILY 06/30/22
ezetimibe 10 mg tablet (Zetia) 10 mg PO HS 06/30/22
ferrous sulfate 325 mg (65 mg 325 mg PO DAILY 06/30/22
iron) tablet
insulin glargine 100 unit/mL (3 25 unit SC DAILY 06/30/22
mL) subcutaneous pen (Lantus
Solostar U-100 Insulin)
levothyroxine 50 mcg tablet 50 mcg PO DAILY 06/30/22
(Synthroid)
magnesium hydroxide 400 mg/5 mL 30 ml PO [id number] PRN if no bm x 3 06/30/22
oral suspension (Milk of Magnesia) days
meclizine 12.5 mg tablet 12.5 mg PO DAILY 06/30/22
rosuvastatin 40 mg tablet (Crestor) 40 mg PO HS 06/30/22
sodium phosphates 19 gram-7 118 ml MT DAILYPRN PRN if dulcolax 06/30/22
gram/118 mL enema (Fleet Enema) is ineffective after 24hrs
insulin aspart U-100 100 unit/mL 4 sliding scale dose SC ACHS 08/14/23
(3 mL) subcutaneous pen (Novolog
FlexPen U-100 Insulin aspart)
acetaminophen 325 mg tablet 650 mg PO [id number] PRN mild pain 02/04/24
buspirone 10 mg tablet 10 mg PO TID 02/04/24
cholecalciferol (vitamin D3) 125 125 mcg PO DAILY 02/04/24
mcg (5,000 unit) tablet
dextromethorphan-guaifenesin 10 10 ml PO Q6HPRN PRN cough 02/04/24
mg-200 mg/5 mL oral liquid
divalproex 250 mg tablet,delayed 250 mg PO DAILY 02/04/24
release
divalproex 500 mg tablet,delayed 500 mg PO HS 02/04/24
release
ibuprofen 200 mg tablet 200 mg PO Q8HPRN PRN mild to 02/04/24
moderate pain
lisinopril 40 mg tablet 40 mg PO DAILY 02/04/24
melatonin 10 mg tablet 10 mg PO HS 02/04/24
oxycodone 10 mg tablet 10 mg PO Q8HPRN PRN severe pain 02/04/24
pantoprazole 20 mg tablet,delayed 20 mg PO DAILY 02/04/24
release
sertraline 100 mg tablet 100 mg PO DAILY taken w/ 50mg = 02/04/24
150mg
sertraline 50 mg tablet 50 mg PO DAILY taken w/ 100mg = 02/04/24
150mg
sucralfate 1 gram tablet 1 g PO DAILY 02/04/24
insulin glargine 100 unit/mL (3 8 unit SC HS 09/11/24
mL) subcutaneous pen (Lantus
Solostar U-100 Insulin)
mupirocin 2 % topical ointment 1 applic topical DAILY RIGHT 5TH 09/11/24
METATERSAL
Vital Signs and Labs
-
Vital Signs and Labs:
Vital Signs
Temp Pulse Resp BP Pulse Ox
36.5 C 63 16 150/85 100
11/01/24 09:07 11/01/24 11:00 11/01/24 11:00 11/01/24 11:00 11/01/24 11:00
Lab Results
11/01/24 09:21
11/01/24 09:21
Sodium 139 mmol/L (135-145) 11/01/24 09:21
Potassium 4.5 mmol/L (3.5-5.1) 11/01/24 09:21
BUN 17 mg/dl (9-20) 11/01/24 09:21
Glucose 139 mg/dl (70-99) H 11/01/24 09:21
Calcium 8.8 mg/dl (8.4-10.2) 11/01/24 09:21
Home Medications
-
Home Medications
acetaminophen 325 mg tablet (Tylenol) 650 mg PO Q4HPRN PRN temp>100F 06/30/22
amlodipine 10 mg tablet (Norvasc) 10 mg PO DAILY 06/30/22
bisacodyl 10 mg rectal suppository (Dulcolax (bisacodyl)) 10 mg MT DAILYPRN PRN if mom is ineffective after 24hrs 06/30/22
carvedilol 12.5 mg tablet (Coreg) 12.5 mg PO BID 06/30/22
clopidogrel 75 mg tablet (Plavix) 75 mg PO DAILY 06/30/22
ezetimibe 10 mg tablet (Zetia) 10 mg PO HS 06/30/22
ferrous sulfate 325 mg (65 mg iron) tablet 325 mg PO DAILY 06/30/22
insulin glargine 100 unit/mL (3 mL) subcutaneous pen (Lantus Solostar U-100 Insulin) 25 unit SC DAILY 06/30/22
levothyroxine 50 mcg tablet (Synthroid) 50 mcg PO DAILY 06/30/22
magnesium hydroxide 400 mg/5 mL oral suspension (Milk of Magnesia) 30 ml PO [id number] PRN if no bm x 3 days 06/30/22
meclizine 12.5 mg tablet 12.5 mg PO DAILY 06/30/22
rosuvastatin 40 mg tablet (Crestor) 40 mg PO HS 06/30/22
sodium phosphates 19 gram-7 gram/118 mL enema (Fleet Enema) 118 ml MT DAILYPRN PRN if dulcolax is ineffective after 24hrs 06/30/22
insulin aspart U-100 100 unit/mL (3 mL) subcutaneous pen (Novolog FlexPen U-100 Insulin aspart) 4 sliding scale dose SC ACHS 08/14/23
acetaminophen 325 mg tablet 650 mg PO [id number] PRN mild pain 02/04/24
buspirone 10 mg tablet 10 mg PO TID 02/04/24
cholecalciferol (vitamin D3) 125 mcg (5,000 unit) tablet 125 mcg PO DAILY 02/04/24
dextromethorphan-guaifenesin 10 mg-200 mg/5 mL oral liquid 10 ml PO Q6HPRN PRN cough 02/04/24
divalproex 250 mg tablet,delayed release 250 mg PO DAILY 02/04/24
divalproex 500 mg tablet,delayed release 500 mg PO HS 02/04/24
ibuprofen 200 mg tablet 200 mg PO Q8HPRN PRN mild to moderate pain 02/04/24
lisinopril 40 mg tablet 40 mg PO DAILY 02/04/24
melatonin 10 mg tablet 10 mg PO HS 02/04/24
oxycodone 10 mg tablet 10 mg PO Q8HPRN PRN severe pain 02/04/24
pantoprazole 20 mg tablet,delayed release 20 mg PO DAILY 02/04/24
sertraline 100 mg tablet 100 mg PO DAILY taken w/ 50mg = 150mg 02/04/24
sertraline 50 mg tablet 50 mg PO DAILY taken w/ 100mg = 150mg 02/04/24
sucralfate 1 gram tablet 1 g PO DAILY 02/04/24
insulin glargine 100 unit/mL (3 mL) subcutaneous pen (Lantus Solostar U-100 Insulin) 8 unit SC HS 09/11/24
mupirocin 2 % topical ointment 1 applic topical DAILY RIGHT 5TH METATERSAL 09/11/24
--- NOTE | 2024-11-01 12:29 | HPS.HSE ---
Addendum entered and electronically signed by Gilmer Avalos MD 11/01/24 14:12:
Allergies
Allergy/AdvReac Type Severity Reaction Status Date / Time
codeine Allergy Unknown Verified 11/01/24 09:13
Penicillins Allergy Unknown Verified 11/01/24 09:13
Home Medications
acetaminophen 325 mg tablet (Tylenol) 650 mg PO Q4HPRN PRN temp>100F 06/30/22
amlodipine 10 mg tablet (Norvasc) 10 mg PO DAILY 06/30/22
bisacodyl 10 mg rectal suppository (Dulcolax (bisacodyl)) 10 mg IA DAILYPRN PRN if mom is ineffective after 24hrs 06/30/22
carvedilol 12.5 mg tablet (Coreg) 12.5 mg PO BID 06/30/22
clopidogrel 75 mg tablet (Plavix) 75 mg PO DAILY 06/30/22
ezetimibe 10 mg tablet (Zetia) 10 mg PO HS 06/30/22
ferrous sulfate 325 mg (65 mg iron) tablet 325 mg PO DAILY 06/30/22
insulin glargine 100 unit/mL (3 mL) subcutaneous pen (Lantus Solostar U-100 Insulin) 25 unit SC DAILY 06/30/22
levothyroxine 50 mcg tablet (Synthroid) 50 mcg PO DAILY 06/30/22
magnesium hydroxide 400 mg/5 mL oral suspension (Milk of Magnesia) 30 ml PO [id number] PRN if no bm x 3 days 06/30/22
meclizine 12.5 mg tablet 12.5 mg PO DAILY 06/30/22
rosuvastatin 40 mg tablet (Crestor) 40 mg PO HS 06/30/22
sodium phosphates 19 gram-7 gram/118 mL enema (Fleet Enema) 118 ml IA DAILYPRN PRN if dulcolax is ineffective after 24hrs 06/30/22
insulin aspart U-100 100 unit/mL (3 mL) subcutaneous pen (Novolog FlexPen U-100 Insulin aspart) 4 sliding scale dose SC ACHS 08/14/23
acetaminophen 325 mg tablet 650 mg PO [id number] PRN mild pain 02/04/24
buspirone 10 mg tablet 10 mg PO TID 02/04/24
cholecalciferol (vitamin D3) 125 mcg (5,000 unit) tablet 125 mcg PO DAILY 02/04/24
dextromethorphan-guaifenesin 10 mg-200 mg/5 mL oral liquid 10 ml PO Q6HPRN PRN cough 02/04/24
divalproex 250 mg tablet,delayed release 250 mg PO DAILY 02/04/24
divalproex 500 mg tablet,delayed release 500 mg PO HS 02/04/24
lisinopril 40 mg tablet 40 mg PO DAILY 02/04/24
melatonin 10 mg tablet 10 mg PO HS 02/04/24
oxycodone 10 mg tablet 10 mg PO Q8HPRN PRN severe pain 02/04/24
pantoprazole 20 mg tablet,delayed release 20 mg PO DAILY 02/04/24
sertraline 100 mg tablet 100 mg PO DAILY taken w/ 50mg = 150mg 02/04/24
sertraline 50 mg tablet 50 mg PO DAILY taken w/ 100mg = 150mg 02/04/24
sucralfate 1 gram tablet 1 g PO DAILY 02/04/24
insulin glargine 100 unit/mL (3 mL) subcutaneous pen (Lantus Solostar U-100 Insulin) 8 unit SC HS 09/11/24
Original Note:
Family Physician
-
Family Physician: Jus Cárdenas
Chief Complaint
-
seziure
History of Present Illness
69 y/o IDDM, HTN, HLD, PVD, COPD, Ataxia, Hx of anemia, Depression, hx of hydrocephalus with recent MAINTENANCE SERVICE TECHNICIAN Shunt placed 3 weeks ago ([facility]) presents ER from [facility] with seizure. Staff entered his room and noticed him starting up at
the ceiling and grabbing at things. Initial evaluation revealed mild hypoxia and hypoglycemia (58). Shortly after, patient reported to have a tonic-clonic seizure lasting 1 minute - no prior history of seizures. Had MAINTENANCE SERVICE TECHNICIAN Shunt placed at [facility] 3
weeks ago for hydrocephalus.
in ER, CT confirmed good position of shunt and revealed CSF collection along the right hemisphere in the right frontal region, new from prior examination, and compatible with a new subdural hygroma. This measures up to 17 mm in thickness.
Additional workup revealed known chronic pericardial effusion and CT (performed for hypoxia) revealed pneumonitis.
Medical History
Past Medical History
Past Medical History: Reports Other (IDDM, HTN, HLD, PVD, COPD, Ataxia, Hx of anemia, Depression, hx of hydrocephalus with recent MAINTENANCE SERVICE TECHNICIAN Shunt placed 3 weeks ago ([facility]))
Past Surgical History: Reports Appendectomy, Orthopedic and Other (recent MAINTENANCE SERVICE TECHNICIAN Shunt placed 3 weeks ago ([facility]))
Social History
Tobacco: Non-smoker
Alcohol: None
Drug: None
Personal: Single
Living: Long Term
Family History
Family History: Not pertinent
Allergies / Home Medications
Allergies reflects when Allergies were last updated in [facility].
Home Medications with original date entered in [facility]
Allergy/Medication List:
not reconciled appropriately yet
If medication reconciliation has not been performed, why?: Medication List N/A
Review of Systems
-
Unable to obtain full review of systems at this time due to: Acuity
A 12 point ROS was completed and negative except as noted: Yes
Physical Exam
Vital Signs
Vital Signs
Temp Pulse Resp BP Pulse Ox
97.7 F 63 16 150/85 100
11/01/24 09:07 11/01/24 11:00 11/01/24 11:00 11/01/24 11:00 11/01/24 11:00
Physical Exam
General: No Apparent Distress and Appears Chronically Ill
HEENT: NormoCephalic and Anicteric
Respiratory: Rhonchi; No Wheezes
Cardiac: S1/S2 and Regular Rhythm
Musculoskeletal: No Cyanosis
Neuro: AO x 3
Psych: Calm
Laboratory Results
-
11/01/24 09:21
11/01/24 09:21
Data Reviewed
-
Diagnostic Radiology: Report Reviewed by me
CT Scan: Report Reviewed by me
Lab Data: Labs Reviewed by me
Impression/Plan
-
Assessment:
Tonic-Clonic Seizure x 1 minute
hx of hydrocephalus with recent MAINTENANCE SERVICE TECHNICIAN Shunt placed 3 weeks ago ([facility])
- CT: Since prior CT examination, placement of a ventricular shunt with interval decrease in size of lateral ventricles. There is crescentic extra-axial CSF collection overlying the right frontal lobe compatible with subdural hygroma. No evidence
for significant associated mass effect. No evidence for acute intracranial hemorrhage.
- d/w NeuroSx and Neurology; findings acceptable for admission. Hygroma not related to seizures, felt to be chronic
- on Valproate, levels are low. IV Valproate per Neurology (1g load, 500mg BID starting tonight)
- seizure precautions
- EEG
- check Mg, TSH, UDS and additional workup per Neurology
- IMU admit
CT evidence of pneumonitis
Hx of COPD
Acute hypoxic respiratory insufficiency on 2L NC
- CT: Within both lower lobes, findings of bronchitis with scattered small airway pneumonitis. No dense area of consolidation. No significant pleural effusion bilaterally.
- start empiric Rocephin/Doxy pending PCT
- consider Pulm evaluation
- ST eval - could be aspiration from seizure
- mucolytics, pulm toilet
IDDM
- hypoglycemia in SNF - resolved with Dextrose
- continue Lantus/SSI
- check A1c
Reported hx of CVA
- Plavix/Statin
Essential HTN
- continue SUSANA/BB/CCB
HLD - statin
hx of PVD
- Plavix/Statin
Hx of anemia
Depression
- continue Zoloft/Buspar
Hypothyroidism
- continue LT4
- check TSH
Chronic pericardial effusion
- CT: Small to moderate-sized pericardial effusion, greatest anteriorly. This pericardial effusion has slightly decreased in size compared to examination of June 30, 2022
DVT ppx: SC heparin
Code: Full
Above plans are pending appropriate med rec. ER team made aware to perform med rec
[2024-11-01] MEDS: DEPACON 60 MG IV (13:25)
[2024-11-01] MEDS: THIAMINE INJECTION 100 MG IV (13:26)
[2024-11-01 13:28] LABS: Creatine Phosphokinase 48 U/L (55-170); Magnesium 2.1 mg/dl (1.6-2.3)
[2024-11-01 14:11] LABS: TSH Reflex To Free T4 2.62 uIU/ml (0.47-4.68)
[2024-11-01] MEDS: TYLENOL 650 MG PO (14:29)
--- NOTE | 2024-11-01 14:43 | EDRN ---
MRI called and stated unable to do MRI until they get a report of the LAMINATING MACHINE OPERATOR shunt. States they are almost done for the day and would not be able to obtain the reports today.
[2024-11-01 15:25] LABS: Free T4 1.29 ng/dl (0.78-2.19)
[2024-11-01 15:35] LABS: Erythrocyte Sed Rate 14 mm/hour (0-20)
[2024-11-01 16:15] LABS: Folate 7.1 ng/ml (2.76-20); Vitamin B12 735 pg/ml (239-931)
[2024-11-01 16:40] LABS: Glucose - Point of Care 110 mg/dl (70-99)
[2024-11-01] MEDS: NOVOLOG FLEXPEN-LOW RESISTANCE SC (17:34)
[2024-11-01] MEDS: STERILE WATER FOR INJECTION 10 ML IV (17:54)
[2024-11-01] MEDS: ROCEPHIN 1000 MG IV (17:55)
[2024-11-01] MEDS: BUSPAR 10 MG PO ×2 (18:02→21:59)
[2024-11-01] MEDS: VIBRAMYCIN 100 MG PO (18:03)
[2024-11-01 21:26] LABS: Glucose - Point of Care 261 mg/dl (70-99)
[2024-11-01] MEDS: COREG 12.5 MG PO (21:58)
[2024-11-01] MEDS: MELATONIN 10 MG PO (21:59)
[2024-11-01] MEDS: HEPARIN 5000 UNITS SC (21:59)
[2024-11-01] MEDS: MUCINEX 1200 MG PO (21:59)
[2024-11-01] MEDS: ZETIA 10 MG PO (22:00)
[2024-11-01] MEDS: DEPACON 55 MG IV (22:00)
[2024-11-01] MEDS: LANTUS 0.08 UNITS SC (22:44)
[2024-11-01] MEDS: CRESTOR 40 MG PO (22:45)
[2024-11-01] MEDS: ATIVAN 0.5 MG PO (22:45)
[2024-11-01 22:59] LABS: Urine Albumin 2+ (Neg - Trace); Urine Bilirubin Negative (Negative); Urine Character Clear (Clear); Urine Color Yellow; Urine Glucose 3+ (Negative); Urine Ketone Negative (Negative); Urine Leukocyte 2+ (Negative); Urine Nitrite Negative (Negative); Urine Occult Blood Negative (Negative); Urine Urobilinogen 1+ (Neg - 1+); Urine pH 6.5 (5.0-9.0)
[2024-11-01 23:05] LABS: Urine Bacteria Few (Negative); Urine Red Blood Cell 0-2 /HPF (0-2)
[2024-11-01 23:09] LABS: Amphetamines Negative (Negative); Barbiturates Negative (Negative); Benzodiazepines Negative (Negative); Buprenorphine Negative (Negative); Cocaine Negative (Negative); Marijuana Negative (Negative); Methadone Negative (Negative); Methamphetamines Negative (Negative); Opiates Negative (Negative); Phencyclidine Negative (Negative); Tricyclic Antidepressants Negative (Negative)
[2024-11-02] VITALS (12 sets, daily range): BP systolic 115–167; BP diastolic 61–82; BMI 29.6
--- NOTE | 2024-11-02 00:22 | PTCARENOTE ---
Patient transported from ED in stretcher. Received verbal report from TRINA Christopher. Pt slid over to the bed. Pt is AAOx2, patient able to state he is at the hospital, disoriented to time. Pt slow to speak. Pt hand grasp present and strong bilaterally.
No weakness or notable deficits. Pt with decreased sensation to b/l lower extremities. Pt NSR on the monitor. Received pt on 2L NC SpO2 97%. Lungs coarse and diminished. Pt denies and SOB or any increased WOB. Pt incontinent CC #21 placed and
draining clear yellow urine. Pt took pills whole one at a time in applesauce with no complaints, pt does eat a mechanical soft diet at [facility]. Pt has surgical scarring on the right side of skull and R lower abdomen. Sites are intact,
cleansed with saline. IV Valproate administered. No notable seizure activity at this time. Pt appears restless and states he feels 'on edge' and requests medication for anxiety. TAB Garcia made aware, one time order for Ativan administered see
AUG. Pt oriented to the unit and call [facility]os is within reach.
--- NOTE | 2024-11-02 01:29 | W.PN.UPDATE ---
Update Note
Progress Note Update
[facility] paperwork noted that pt is listed as a DNR. Pt admitted as a full code- Spoke with the pt regarding what being a full code entails (compressions/ intubation) Pt verbalized that he wishes to be a DNR. orders changed to DNR.
--- NOTE | 2024-11-02 02:53 | PTCARENOTE ---
After reviewing patients paper chart for [facility] patient listed code status as DNR. Reached out to TAB Garcia immediately, MANAGER [employer]IVERS[employer] to bedside to confirm with patient wishes and to confirm code status. Code status was listed as full code, order
changed to DNR according to pt wishes. DNR bracelet applied.
[2024-11-02 04:56] LABS: Hematocrit 32.5 % (39.0-52.0); Hemoglobin 11.1 g/dL (13.0-18.0); Mean Corp Hgb Conc. 34.2 g/dL (33.0-37.0); Mean Corpuscular Hgb 31.5 pg (27.0-31.0); Mean Corpuscular Volume 92.3 fL (80.0-94.0); Mean Platelet Volume 11.3 fL (7.4-10.4); Platelet Count 202 10^3/uL (130-400); Red Blood Cell Count 3.52 10^6/uL (4.70-6.10); Red Cell Dist. Width 14.2 % (11.5-14.5); White Blood Cell Count 9.2 10^3/uL (4.8-10.8)
[2024-11-02 05:23] LABS: Blood Urea Nitrogen 19 mg/dl (9-20); Calcium 8.7 mg/dl (8.4-10.2); Carbon Dioxide 31 mmol/L (22-30); Chloride 103 mmol/L (98-107); Estimated Creatinine Clearance 84 ml/min; Glucose 223 mg/dl (70-99); Potassium 4.9 mmol/L (3.5-5.1); Sodium 137 mmol/L (135-145); eGFR > 60.00
[2024-11-02 05:29] LABS: Procalcitonin 0.49 ng/ml (0.0-0.25)
[2024-11-02] MEDS: SYNTHROID 50 MCG PO (05:40)
[2024-11-02] MEDS: VIBRAMYCIN 100 MG PO ×2 (05:40→17:01)
--- NOTE | 2024-11-02 08:00 | PTCARENOTE ---
report received from previous RN at change of shift. Pt drowsy, arouses to voice. AAOX2- disoriented to time. forgetful. generalized weakness. weak hand grasps. pt on telemetry heart rate in 60s. pulses palpable. pt on 2L nasal cannula, pt noted to
desat at times during sleeping with apnea. sat 100% when awake. lung sounds diminished in bases. active bowel sounds. pt seen by speech. took medications whole with applesauce. condom cath in place draining clear yellow urine. surgical sites CLEANING MANAGER
CDI. see worklist for full nursing assessment and interventions.
--- NOTE | 2024-11-02 09:19 | W.PN.HOSP.TC ---
Today's Communication/Plan
-
continue increased dosing Divalproex IV
F/U MRI
F/U formal Neurology consult
Assessment / Plan
Assessment / Plan
Tonic-Clonic Seizure x 1 minute
hx of hydrocephalus with recent WARDROBE SPECIALTY WORKER Shunt placed 3 weeks ago ([facility])
- CT: Since prior CT examination, placement of a ventricular shunt with interval decrease in size of lateral ventricles. There is crescentic extra-axial CSF collection overlying the right frontal lobe compatible with subdural hygroma. No evidence
for significant associated mass effect. No evidence for acute intracranial hemorrhage.
- d/w NeuroSx and Neurology; findings acceptable for admission. Hygroma not related to seizures, felt to be chronic
- on Valproate, levels are low. IV Valproate per Neurology; s/p 1g load, continue 500mg BID
- seizure precautions
- EEG
- MRI ordered
- IMU admit
CT evidence of pneumonitis
Hx of COPD
Acute hypoxic respiratory insufficiency on 2L NC
- CT: Within both lower lobes, findings of bronchitis with scattered small airway pneumonitis. No dense area of consolidation. No significant pleural effusion bilaterally.
- continue Rocephin/Doxy - day 2
- ST eval - could be aspiration from seizure
- mucolytics, pulm toilet
IDDM
- hypoglycemia in SNF - resolved with Dextrose
- continue Lantus/SSI
- check A1c
Reported hx of CVA
- Plavix/Statin
Essential HTN
- continue SUSANA/BB/CCB
HLD - statin
hx of PVD
- Plavix/Statin
Hx of anemia
Depression
- continue Zoloft/Buspar
Hypothyroidism
-continue levothyroixine
Chronic pericardial effusion
- CT: Small to moderate-sized pericardial effusion, greatest anteriorly. This pericardial effusion has slightly decreased in size compared to examination of June 30, 2022
DVT ppx: SC heparin
Code: Full
51 minutes spent on patient care
Anticipated Discharge: 24 - 48 hours
Subjective/Interval History
-
Date of Service: November 02, 2024
feeling okay
reports some congestion and cough
no seizures overnight
Objective Data
-
Labs:
Laboratory Results
11/02/24 11/02/24
04:20 04:21
WBC 9.2
Hgb 11.1 L
Hct 32.5 L
Plt Count 202
Sodium 137
Potassium 4.9
Chloride 103
Carbon Dioxide 31 H
BUN 19
Creatinine 0.8
Glucose 223 H
Calcium 8.7
Vital Signs:
Vital Signs
Temp Pulse Resp BP Pulse Ox
98.0 F 67 21 167/72 98
11/02/24 06:36 11/02/24 06:00 11/02/24 06:00 11/02/24 06:00 11/02/24 06:00
I&O
11/01/24 11/02/24 11/03/24
06:59 06:59 06:59
Intake Total 50 / 50
Output Total 900 / 900
Balance -850 / -850
Review of Systems
-
History Source: Patient
All other systems: Reviewed and negative
Physical Exam
-
General: No Apparent Distress
HEENT: PERRLA
Respiratory: Negative Wheezes
Cardiac: Regular Rhythm and S1/S2
GI: Soft and Nontender
Musculoskeletal: No Edema
Skin: Warm and Dry; Negative Rash
Neuro: AO x 3
Psych: Calm
Data Reviewed
-
Diagnostic Radiology: Report Reviewed by me
Labs: Labs Reviewed by me
--- NOTE | 2024-11-02 10:05 | PTOTSP ---
Speech Language Pathology
Pt seen for clinical bedside swallow evaluation. Pt stated he owns dentures, but he does not wear them to eat and therefore eats softer solids. P.O. trials of puree, soft solids (eggs), and thin liquids provided. Occasional cough noted post thin
liquids (approximately 10-20% of trials). Impulsive rate of intake with self-feeding noted at times, but adequate mastication and oral clearance noted.
Pt woken from a deep sleep for evaluation. Question whether coughing related to waking up/post-ictal state. Will monitor for need for instrumental swallowing assessment.
Recommend:
(1) IDDSI Level 6 (soft/bite-sized) solids and thin liquids
(2) Aspiration precautions: full supervision, slow rate, single sips
(3) Meds whole in puree
(4) STENCILER to continue to follow to monitor diet tolerance and need for instrumental swallowing assessment
[2024-11-02] MEDS: LANTUS 0.25 UNITS SC (10:17)
[2024-11-02] MEDS: THIAMINE INJECTION 100 MG IV (10:17)
[2024-11-02] MEDS: MUCINEX 1200 MG PO ×2 (10:17→20:30)
[2024-11-02] MEDS: HEPARIN 5000 UNITS SC ×2 (10:17→20:30)
[2024-11-02] MEDS: PLAVIX 75 MG PO (10:18)
[2024-11-02] MEDS: ZESTRIL 40 MG PO (10:18)
[2024-11-02] MEDS: VITAMIN D3 (cholecalciferol) 125 MCG PO (10:18)
[2024-11-02] MEDS: PROTONIX 20 MG PO (10:18)
[2024-11-02] MEDS: NORVASC 10 MG PO (10:18)
[2024-11-02] MEDS: ZOLOFT 100 MG PO (10:18)
[2024-11-02] MEDS: BUSPAR 10 MG PO ×3 (10:19→22:08)
[2024-11-02] MEDS: CARAFATE 1 GRAM PO (10:19)
[2024-11-02] MEDS: ZOLOFT 50 MG PO (10:19)
[2024-11-02] MEDS: DEPACON 55 MG IV ×2 (10:19→20:30)
[2024-11-02] MEDS: COREG 12.5 MG PO ×2 (10:19→20:29)
[2024-11-02] MEDS: ANTIVERT 12.5 MG PO (10:19)
[2024-11-02] MEDS: FEOSOL 325 MG PO (10:19)
[2024-11-02 10:27] LABS: Glucose - Point of Care 164 mg/dl (70-99)
--- NOTE | 2024-11-02 10:53 | EEG.RPT ---
Electroencephalogram Report
Recording
Date of EE11/02/24
Type of EEG: Routine
Length of EEG recordin minutes
Done with Video Recording: Yes
Patient Status: Inpatient
Recording Conditions: Awake, Drowsy and Asleep
Hyperventilation Performed: No
Photic Stimulation Performed: Yes
Report
LESS THAN 1 HOUR REPORT
LESS THAN 1 HOUR EEG INTERPRETATION:
Likely normal study for age in sleep only
CLINICAL CORRELATION:
Although normative values not been established for a person of this advanced age the normal appearance of the sleep structures electrically suggests that this study was unremarkable.
Consideration for a study capturing wakefulness may be of assistance.
Clinical correlation is advised.
METHODS:
A 21 channel digitized electroencephalogram (EEG) was performed at the bedside in the IMU. The 10/20 international system of electrode placement was used with ECG and lateral/vertical eye movements recorded.
ELECTROENCEPHALOGRAPHER IMPRESSION(S):
Quality of study
Good
Background
Absent
Sleep
Drowsiness present
Stage 2 present
Hyperventilation
Not performed
Photic Stimulation
No driving
ECG
Unremarkable
[2024-11-02] MEDS: NOVOLOG FLEXPEN-LOW RESISTANCE SC (11:24)
[2024-11-02 13:00] LABS: Glucose - Point of Care 225 mg/dl (70-99)
[2024-11-02 13:24] LABS: Glycohemoglobin (HgbA1c) 8.1 % (4.0-5.6)
[2024-11-02] MEDS: NOVOLOG FLEXPEN-LOW RESISTANCE 2 UNITS SC (13:52)
--- NOTE | 2024-11-02 15:16 | CM ---
Patient from [facility] with Hx hydrocephalus with recent WINE PASTEURIZER Shunt with Dx Tonic-Clonic Seizure, pneumonitis. EEG today. ST - Dysphagia diet. Per nurse; drowsy. Receiving IV Valproate Sod, IV Abx.
Met with patient who says he is residing at [facility] in LTC and intends to return there.
Spoke with Skyla, [facility];
the patient resides there in LTC on an [place] bed hold.
He is A/O at baseline, requires total care per their nurse and is w/c bound.
The patient was not receiving PT/OT currently.
The ph for report [phone], fax [phone].
Plan return to [facility] when medically ready.
[2024-11-02] MEDS: ROCEPHIN 1000 MG IV (17:01)
[2024-11-02] MEDS: STERILE WATER FOR INJECTION 10 ML IV (17:01)
[2024-11-02 17:13] LABS: Glucose - Point of Care 255 mg/dl (70-99)
[2024-11-02] MEDS: NOVOLOG FLEXPEN-LOW RESISTANCE 3 UNITS SC (18:06)
[2024-11-02 22:04] LABS: Glucose - Point of Care 317 mg/dl (70-99)
[2024-11-02] MEDS: ATIVAN 0.25 MG PO (22:08)
[2024-11-02] MEDS: CRESTOR 40 MG PO (22:08)
[2024-11-02] MEDS: ZETIA 10 MG PO (22:09)
[2024-11-02] MEDS: LANTUS 0.08 UNITS SC (22:09)
[2024-11-02] MEDS: MELATONIN 10 MG PO (22:09)
[2024-11-03] VITALS (9 sets, daily range): BP systolic 91–141; BP diastolic 34–92; PULSE 63; O2SAT 98
[2024-11-03] MEDS: SYNTHROID 50 MCG PO (05:33)
[2024-11-03] MEDS: VIBRAMYCIN 100 MG PO (05:33)
[2024-11-03 05:42] LABS: Hematocrit 32.6 % (39.0-52.0); Hemoglobin 11.2 g/dL (13.0-18.0); Mean Corp Hgb Conc. 34.4 g/dL (33.0-37.0); Mean Corpuscular Hgb 31.7 pg (27.0-31.0); Mean Corpuscular Volume 92.4 fL (80.0-94.0); Mean Platelet Volume 11.2 fL (7.4-10.4); Platelet Count 201 10^3/uL (130-400); Red Blood Cell Count 3.53 10^6/uL (4.70-6.10); White Blood Cell Count 6.3 10^3/uL (4.8-10.8)
[2024-11-03 06:07] LABS: Blood Urea Nitrogen 25 mg/dl (9-20); Calcium 8.5 mg/dl (8.4-10.2); Carbon Dioxide 28 mmol/L (22-30); Chloride 107 mmol/L (98-107); Estimated Creatinine Clearance 75 ml/min; Glucose 236 mg/dl (70-99); Potassium 4.7 mmol/L (3.5-5.1); Sodium 138 mmol/L (135-145); eGFR > 60.00
--- NOTE | 2024-11-03 07:32 | W.PN.HOSP.TC ---
Today's Communication/Plan
-
continue increased dose Depakote
OK for DC post PT eval
Assessment / Plan
Assessment / Plan
Tonic-Clonic Seizure x 1 minute
hx of hydrocephalus with recent BUSINESS DEVELOPMENT ASSISTANT Shunt placed 3 weeks ago ([facility])
- CT: Since prior CT examination, placement of a ventricular shunt with interval decrease in size of lateral ventricles. There is crescentic extra-axial CSF collection overlying the right frontal lobe compatible with subdural hygroma. No evidence
for significant associated mass effect. No evidence for acute intracranial hemorrhage.
- admitting physician d/w NeuroSx and Neurology; findings acceptable for admission. Hygroma not related to seizures, felt to be chronic
- on Valproate, levels are low. IV Valproate per Neurology; s/p 1g load, continue 500mg BID
- seizure precautions
- EEG without seizure
- MRI cannot take place 2/2 BUSINESS DEVELOPMENT ASSISTANT shunt
- OK for DC per neurology on Valproate 500 BID
-OK for DC post PT eval
CT evidence of pneumonitis
Hx of COPD
Acute hypoxic respiratory insufficiency on 2L NC
- CT: Within both lower lobes, findings of bronchitis with scattered small airway pneumonitis. No dense area of consolidation. No significant pleural effusion bilaterally.
- continue Rocephin/Doxy - day 3
- ST eval - could be aspiration from seizure - IDDSI 6 recommended
- mucolytics, pulm toilet
IDDM
- hypoglycemia in SNF - resolved with Dextrose
- continue Lantus/SSI
- A1c = 8.1, OK to continue home dosing
Reported hx of CVA
- Plavix/Statin
Essential HTN
- continue SUSANA/BB/CCB
HLD - statin
hx of PVD
- Plavix/Statin
Hx of anemia
Depression
- continue Zoloft/Buspar
Hypothyroidism
-continue levothyroixine
Chronic pericardial effusion
- CT: Small to moderate-sized pericardial effusion, greatest anteriorly. This pericardial effusion has slightly decreased in size compared to examination of June 30, 2022
DVT ppx: SC heparin
Code: Full
51 minutes spent on patient care
Anticipated Discharge: Today
Subjective/Interval History
-
Date of Service: November 03, 2024
feeling ok, feels ready to leave the hospital today
no issues overnight
Objective Data
-
Labs:
Laboratory Results
11/03/24
05:26
WBC 6.3
Hgb 11.2 L
Hct 32.6 L
Plt Count 201
Sodium 138
Potassium 4.7
Chloride 107
Carbon Dioxide 28
BUN 25 H
Creatinine 0.9
Glucose 236 H
Calcium 8.5
Vital Signs:
Vital Signs
Temp Pulse Resp BP Pulse Ox
97.8 F 57 23 91/34 100
11/03/24 03:06 11/03/24 04:00 11/03/24 04:00 11/03/24 04:00 11/03/24 02:00
I&O
11/02/24 11/03/24 11/04/24
06:59 06:59 06:59
Intake Total 50 / 50 535 / 535
Output Total 900 / 900 1300 / 1300
Balance -850 / -850 -765 / -765
Review of Systems
-
History Source: Patient
All other systems: Reviewed and negative
Physical Exam
-
General: No Apparent Distress
HEENT: PERRLA
Respiratory: Negative Wheezes
Cardiac: Regular Rhythm and S1/S2
GI: Soft and Nontender
Musculoskeletal: No Edema
Skin: Warm and Dry; Negative Rash
Neuro: AO x 3
Psych: Calm
Data Reviewed
-
Diagnostic Radiology: Report Reviewed by me
Labs: Labs Reviewed by me
--- NOTE | 2024-11-03 08:11 | W.DS.TRANS ---
DC Summary - Service Order Expediter
-
Discharge Instructions:
Discharge Diagnosis/Procedures Tonic Clonic Seizure, Pneumonitis
Diet Other diet
Additional Diets Recommend:
(1) IDDSI Level 6 (soft/bite-sized) solids and
thin liquids
(2) Aspiration precautions: full supervision,
slow rate, single sips
(3) Meds whole in puree
(4) SHIP'S CARPENTER to continue to follow to monitor diet
tolerance and need for instrumental swallowing
assessment
Activity As tolerated
Driving Restrictions No driving
Bathing Restrictions None
Other Services PT,OT,ST
Instructions:
Stand-Alone Forms:
Changes to Home Medications: Yes
Discharge Medications:
DC Medications w/original date entered in resmio
acetaminophen 325 mg tablet (Tylenol) 650 mg PO Q4HPRN PRN temp>100F 06/30/22
amlodipine 10 mg tablet (Norvasc) 10 mg PO DAILY Blood Pressure 06/30/22
bisacodyl 10 mg rectal suppository (Dulcolax (bisacodyl)) 10 mg OK DAILYPRN PRN if mom is ineffective after 24hrs 06/30/22
carvedilol 12.5 mg tablet (Coreg) 12.5 mg PO BID Blood Pressure 06/30/22
clopidogrel 75 mg tablet (Plavix) 75 mg PO DAILY Blood Clot Prevention/Tx 06/30/22
ezetimibe 10 mg tablet (Zetia) 10 mg PO HS High Cholesterol 06/30/22
ferrous sulfate 325 mg (65 mg iron) tablet 325 mg PO DAILY Supplement 06/30/22
insulin glargine 100 unit/mL (3 mL) subcutaneous pen (Lantus Solostar U-100 Insulin) 25 unit SC DAILY Diabetes 06/30/22
levothyroxine 50 mcg tablet (Synthroid) 50 mcg PO DAILY Thyroid 06/30/22
magnesium hydroxide 400 mg/5 mL oral suspension (Milk of Magnesia) 30 ml PO [id number] PRN if no bm x 3 days 06/30/22
meclizine 12.5 mg tablet 12.5 mg PO DAILY Allergies 06/30/22
rosuvastatin 40 mg tablet (Crestor) 40 mg PO HS High Cholesterol 06/30/22
sodium phosphates 19 gram-7 gram/118 mL enema (Fleet Enema) 118 ml OK DAILYPRN PRN if dulcolax is ineffective after 24hrs 06/30/22
insulin aspart U-100 100 unit/mL (3 mL) subcutaneous pen (Novolog FlexPen U-100 Insulin aspart) 4 sliding scale dose SC ACHS Diabetes 08/14/23
acetaminophen 325 mg tablet 650 mg PO [id number] PRN mild pain 02/04/24
buspirone 10 mg tablet 10 mg PO TID Mental Health/Anxiety 02/04/24
cholecalciferol (vitamin D3) 125 mcg (5,000 unit) tablet 125 mcg PO DAILY Supplement 02/04/24
divalproex 500 mg tablet,delayed release 500 mg PO HS 02/04/24
lisinopril 40 mg tablet 40 mg PO DAILY Blood Pressure 02/04/24
melatonin 10 mg tablet 10 mg PO HS Sleep 02/04/24
pantoprazole 20 mg tablet,delayed release 20 mg PO DAILY Gastrointestinal Issue 02/04/24
sertraline 100 mg tablet 100 mg PO DAILY Mental Health/Anxiety 02/04/24
sertraline 50 mg tablet 50 mg PO DAILY Mental Health/Anxiety 02/04/24
sucralfate 1 gram tablet 1 g PO DAILY Gastrointestinal Issue 02/04/24
insulin glargine 100 unit/mL (3 mL) subcutaneous pen (Lantus Solostar U-100 Insulin) 8 unit SC HS Diabetes 09/11/24
cefdinir 300 mg capsule 300 mg PO Q12 #6 caps 11/03/24
divalproex 250 mg tablet,delayed release 500 mg (2 x 250 mg) PO DAILY #60 tabs 11/03/24
doxycycline hyclate 100 mg capsule 100 mg PO Q12H #5 caps 11/03/24
guaifenesin 600 mg tablet, extended release 12 hr 1,200 mg (2 x 600 mg) PO Q12 #20 tabs 11/03/24
oxycodone 10 mg tablet 10 mg PO Q8HPRN PRN severe pain #5 tabs 11/03/24
Home Medication Changes
Your Depakote is increased from 250mg qAM; 500mg qPM to 500mg PO BID.
You have 5 more doses of Doxycycline and 6 more doses of Cefdinir
Pending Results: No
[2024-11-03] MEDS: PLAVIX 75 MG PO (08:18)
[2024-11-03] MEDS: CARAFATE 1 GRAM PO (08:18)
[2024-11-03] MEDS: ZOLOFT 50 MG PO (08:19)
[2024-11-03] MEDS: FEOSOL 325 MG PO (08:19)
[2024-11-03] MEDS: PROTONIX 20 MG PO (08:19)
[2024-11-03] MEDS: BUSPAR 10 MG PO (08:19)
[2024-11-03] MEDS: NORVASC 10 MG PO (08:19)
[2024-11-03] MEDS: ZESTRIL 40 MG PO (08:19)
[2024-11-03] MEDS: COREG 12.5 MG PO (08:19)
[2024-11-03] MEDS: ZOLOFT 100 MG PO (08:19)
[2024-11-03] MEDS: MUCINEX 1200 MG PO (08:19)
[2024-11-03] MEDS: ANTIVERT 12.5 MG PO (08:19)
[2024-11-03] MEDS: VITAMIN D3 (cholecalciferol) 125 MCG PO (08:19)
[2024-11-03] MEDS: THIAMINE INJECTION 100 MG IV (08:21)
[2024-11-03] MEDS: HEPARIN 5000 UNITS SC (08:21)
[2024-11-03] MEDS: NOVOLOG FLEXPEN-LOW RESISTANCE 2 UNITS SC (08:29)
[2024-11-03] MEDS: LANTUS 0.25 UNITS SC (08:31)
[2024-11-03 08:32] LABS: Glucose - Point of Care 227 mg/dl (70-99)
[2024-11-03] MEDS: DEPAKOTE (12 HR RELEASE) 500 MG PO (08:38)
--- NOTE | 2024-11-03 10:15 | PTOTSP ---
Speech Language Pathology
VIDEOFLUOROSCOPIC SWALLOWING EXAMINATION (VSE) completed. Pt with mild oropharyngeal dysphagia with penetration at times, no aspiration.
Recommend:
(1) IDDSI Level 6 (soft/bite-sized) and mildly thick liquids
(2) Aspiration precautions: sit upright, slow rate, partial supervision
(3) Meds whole in puree
(4) HOT SAW OPERATOR follow up at facility to train on single cup sips of thin liquids with use of chin tuck
(5) HOT SAW OPERATOR to continue to follow
--- NOTE | 2024-11-03 11:09 | PTCARENOTE ---
Patient went down for video swallow study, oob to chair for breakfast, RN updated patients contact in chart on plan of care and pending discharge. [facility]
--- NOTE | 2024-11-03 13:15 | W.DCSUMMARY ---
Discharge Summary
Discharge Data
Date of Admission: 11/01/24
Date of Discharge: 11/03/24
-
Pending Results: No
Hospital Course
Discharging Physician : Dr. Mary Grace Foster
Disposition : SNF
Primary care physician : Dr. Jus Cárdenas
Principal Discharge diagnosis : Tonic-Clonic Seizure, Bronchitis
Hospital Course :
Mr. Jimenez Schmitz is a 69 y/o IDDM, HTN, HLD, PVD, COPD, Ataxia, Hx of anemia, Depression, chronic pericardial effusion, hx of hydrocephalus with recent MUSEUM EDUCATOR Shunt placed 3 weeks ago ([facility]) presents ER from [facility] with seizure. He
had a witnessed tonic-clonic seizure lasting one minute.
Triage vitals stable. Labs with glucose 139 (was checked at [facility], 58). CT Head with placement of MUSEUM EDUCATOR shunt with interval decrease size of lateral ventricles, subdural hygroma. Case discussed with Neurology and Neurosurgery on admission.
Hygroma felt to be chronic, not related to seizures, OK for admission to . His Valproic acid level was low and was therefore given 1G loading dose followed by increased dosing of 500mg BID.
EEG obtained which was unremarkable. MRI could not be obtained 2/2 MUSEUM EDUCATOR shunt. He remained seizure free remainder of hospitalization and is discharged on higher dose Valproic acid.
CT chest showed bronchitis with pneumonitis. He was treated with a 5 day course of antibioitcs (Ceftriaxone --> Cefdinir and Doxycycline).
Worked with ST prior to discharge, IDDSI6 recommended with mildly thick liquids. He should continue to work with ST at [facility].
Time spent on discharge was [address]
Recommend:
(1) IDDSI Level 6 (soft/bite-sized) and mildly thick liquids
(2) Aspiration precautions: sit upright, slow rate, partial supervision
(3) Meds whole in puree
(4) CAPTION WRITER follow up at facility to train on single cup sips of thin liquids with use of chin tuck
(5) CAPTION WRITER to continue to follow
Important imaging findings :
CXR 11/01/24
IMPRESSION:
The lungs appear clear for portable AP technique. The cardiac silhouette, vascular markings, and mediastinal shadow appear normal.
HEAD CT 11/01/24
IMPRESSION:
Since prior CT examination, placement of a ventricular shunt with interval decrease in size of lateral ventricles.
There is crescentic extra-axial CSF collection overlying the right frontal lobe compatible with subdural hygroma. No evidence for significant associated mass effect.
No evidence for acute intracranial hemorrhage.
CHEST CT 11/01/24
IMPRESSION: No CT angiographic evidence for pulmonary embolism.
Within both lower lobes, findings of bronchitis with scattered small airway pneumonitis. No dense area of consolidation. No significant pleural effusion bilaterally.
Small to moderate-sized pericardial effusion, greatest anteriorly. This pericardial effusion has slightly decreased in size compared to examination of June 30, 2022
Thin rim of ascites along the anterolateral margin of the visualized liver.
Procedure findings :
Discharge Plan
-
Patient Disposition: Chcf/SNF
Discharge Diagnosis/Procedures: Tonic Clonic Seizure, Pneumonitis
Diet: Other diet
Additional Diets: Recommend:
(1) IDDSI Level 6 (soft/bite-sized) solids and mildly thick liquids
(2) Aspiration precautions: full supervision, slow rate, single sips
(3) Meds whole in puree
(4) CAPTION WRITER to continue to follow to monitor diet tolerance and need for instrumental swallowing assessment
Activity: As tolerated
Driving Restrictions: No driving
Bathing Restrictions: None
Others Tests: ST to work with patient to see if he can do single cup sips of thin liquids with use of chin tuck
Other Services: PT, OT and ST
Referrals:
Jus Cárdenas MD [Family Provider] - in less than 1 week
Additional Discharge Medication Instructions: Please follow up with your Neurologist at next available appointment
Your Depakote is increased from 250mg qAM; 500mg qPM to 500mg PO BID.
You have 5 more doses of Doxycycline and 6 more doses of Cefdinir
Prescriptions:
New
guaifenesin 600 mg Tablet Extended Release 12hr
1,200 mg PO Q12 Qty: 20 0RF
cefdinir 300 mg Capsule
300 mg PO Q12 Qty: 6 0RF
doxycycline hyclate 100 mg Capsule
100 mg PO Q12H Qty: 5 0RF
Continued
acetaminophen [Tylenol] 325 mg Tablet
650 mg PO Q4HPRN PRN (Reason: temp>100F)
carvedilol [Coreg] 12.5 mg Tablet
12.5 mg PO BID
meclizine 12.5 mg Tablet
12.5 mg PO DAILY
clopidogrel [Plavix] 75 mg Tablet
75 mg PO DAILY
magnesium hydroxide [Milk of Magnesia] 400 mg/5 mL Suspension
30 ml PO [id number] PRN (Reason: if no bm x 3 days)
amlodipine [Norvasc] 10 mg Tablet
10 mg PO DAILY
levothyroxine [Synthroid] 50 mcg Tablet
50 mcg PO DAILY
bisacodyl [Dulcolax (bisacodyl)] 10 mg Suppository
10 mg OK DAILYPRN PRN (Reason: if mom is ineffective after 24hrs)
ferrous sulfate 325 mg (65 mg iron) Tablet
325 mg PO DAILY
Fleet Enema 19-7 gram/118 mL Enema
118 ml OK DAILYPRN PRN (Reason: if dulcolax is ineffective after 24hrs)
ezetimibe [Zetia] 10 mg Tablet
10 mg PO HS
rosuvastatin [Crestor] 40 mg Tablet
40 mg PO HS
insulin glargine [Lantus Solostar U-100 Insulin] 100 unit/mL (3 mL) Insulin Pen
25 unit SC DAILY
insulin aspart U-100 [Novolog FlexPen U-100 Insulin] 100 unit/mL (3 mL) Insulin Pen
4 sliding scale dose SC ACHS
acetaminophen 325 mg Tablet
650 mg PO [id number] PRN (Reason: mild pain)
sucralfate 1 gram tablet
1 g PO DAILY
sertraline 100 mg tablet
100 mg PO DAILY
Rx Instructions:
taken w/ 50mg = 150mg
divalproex 500 mg tablet,delayed release (DR/EC)
500 mg PO HS
pantoprazole 20 mg Tablet,Delayed Release (Dr/Ec)
20 mg PO DAILY
buspirone 10 mg tablet
10 mg PO TID
lisinopril 40 mg Tablet
40 mg PO DAILY
sertraline 50 mg tablet
50 mg PO DAILY
Rx Instructions:
taken w/ 100mg = 150mg
cholecalciferol (vitamin D3) 125 mcg (5,000 unit) Tablet
125 mcg PO DAILY
melatonin 10 mg Tablet
10 mg PO HS
insulin glargine [Lantus Solostar U-100 Insulin] 100 unit/mL (3 mL) Insulin Pen
8 unit SC HS
oxycodone 10 mg Tablet
10 mg PO Q8HPRN PRN (Reason: severe pain) Qty: 5 0RF
Changed
divalproex 250 mg tablet,delayed release (DR/EC)
500 mg PO DAILY Qty: 60 0RF
Discontinued
dextromethorphan-guaifenesin [Guaifenesin DM] 10-200 mg/5 mL Liquid
10 ml PO Q6HPRN PRN (Reason: cough)
Discharge Orders:
Discharge Patient (As Directed); Ordered 11/03/24
Ordered By: Mary Grace Foster
Discharge Date and Time
Discharge Date/Time: 11/03/24 12:03
Print Language: CITIZEN OF [place]
--- NOTE | 2024-11-03 16:12 | CM ---
Patient from [facility] with Hx hydrocephalus with recent AURICULOTHERAPIST Shunt with Dx Tonic-Clonic Seizure, pneumonitis. VSE today. PT Eval; recommends PT after return to LTC.
Spoke with Skyla, [facility];
they are able to accept the patient back today.
The for report [phone], fax [phone].
Met with patient yesterday - IMM completed.
Plan return to [facility] today by ambulance.
== END 2024-11-03 12:03 | DRG 100 ==
LOC: IMU 13:04
PROVIDERS: Psychiatry & Neurology Clinical Neurophysiology; ADMITTING PHYSICIAN Internal Medicine; ATTENDING PHYSICIAN Student in an Organized Health Care Education/Training Program; CONSULT PHYSICIAN Psychiatry & Neurology Neurology; EMERGENCY PHYSICIAN Emergency Medicine; FAMILY PHYSICIAN Internal Medicine
DX: G40.89 Other seizures (principal); G93.41 Metabolic encephalopathy; I31.39 Other pericardial effusion (noninflammatory); G96.08 Other cranial cerebrospinal fluid leak; R18.8 Other ascites; J98.4 Other disorders of lung; I10 Essential (primary) hypertension; J44.89 Other specified chronic obstructive pulmonary disease; E10.649 Type 1 diabetes mellitus with hypoglycemia without coma; E10.51 Type 1 diabetes mellitus with diabetic peripheral angiopathy without gangrene; D64.9 Anemia, unspecified; F32.A Depression, unspecified; E03.9 Hypothyroidism, unspecified; Z98.2 Presence of cerebrospinal fluid drainage device; Z86.718 Personal history of other venous thrombosis and embolism; Z11.52 Encounter for screening for COVID-19; Z99.3 Dependence on wheelchair; Z79.4 Long term (current) use of insulin; Z79.82 Long term (current) use of aspirin; Z66 Do not resuscitate
CPT/HCPCS: 70450; 71045; 71275; 74230; 80048; 80164; 80306; 81003; 81015; 82550; 82607; 82746; 82962; 83036; 83735; 84145; 84439; 84443; 85025; 85027; 85652; 86140; 87502; 87811; 92610; 92611; 93005; 95816; 97162; 99291; Q9967

== ENCOUNTER → 2025-01-08 08:48 | Outpatient (REF) | payer MEDICARE, OTHER, SELFPAY | LOC: RST 08:48 | PROVIDERS: ATTENDING PHYSICIAN Internal Medicine | DX: R13.10 Dysphagia, unspecified (principal); I69.391 Dysphagia following cerebral infarction | CPT/HCPCS: 74230; 92611 ==

== ENCOUNTER 2025-03-19 09:02 | Inpatient (IN) | payer MEDICARE, OTHER, SELFPAY ==
[2025-03-19] VITALS (13 sets, daily range): BP systolic 119–155; BP diastolic 52–81; BMI 29.8; BMI 28.2
[2025-03-19 04:29] LABS: Glucose - Point of Care 562 mg/dl (70-99)
[2025-03-19] MEDS: NSS 1000 IV (04:52)
[2025-03-19 04:58] LABS: B.E. -6.6 mmol/L; HCO3 18.3 mmol/L (21-28); O2 Saturation % 96.0 % (94-98); PCO2 34 mmHg (35-48); PO2 75 mmHg (83-108)
[2025-03-19 05:05] LABS: Hematocrit 36.4 % (39.0-52.0); Hemoglobin 12.5 g/dL (13.0-18.0); Mean Corp Hgb Conc. 34.3 g/dL (33.0-37.0); Mean Corpuscular Volume 90.5 fL (80.0-94.0); Nucleated Red Blood Cells % 0 % (-); Platelet Count 260 10^3/uL (130-400); Red Cell Dist. Width 12.8 % (11.5-14.5)
--- NOTE | 2025-03-19 05:42 | ED.GENMED ---
History of Present Illness
General
Chief Complaint: Blood Sugar Problem
Source: patient and ambulance crew
Exam Limitations: none
Time Seen by Provider: 03/19/25 04:16
Nursing documentation reviewed up to this point in time: agreed with
History of Present Illness
History of Present Illness:
Note:
CHIEF COMPLAINT(S)
high blood sugar.
HISTORY OF PRESENT ILLNESS
The patient is a 70-year-old male with a known history of diabetes mellitus, presenting with low blood sugar. The patient confirmed that he is on insulin therapy. He reported that he took his insulin normally this evening. The patient noted that his
blood sugar levels do not often drop to such low values. He mentioned recent readings of 409 mg/dL but did not provide the current low reading. The patient did not report associated symptoms of abdominal pain or nausea. No instances of shortness of
breath were mentioned.
CHRONIC MEDICAL CONDITIONS SIGNIFICANTLY AFFECTING CARE
The patient has a history of diabetes mellitus, requiring insulin therapy.
PHYSICAL EXAM
General: Alert, no acute distress.
Skin: Warm, dry.
Head: Normocephalic, atraumatic.
Neck: Supple, trachea midline.
Eye Ears, nose, mouth and throat: Oral mucosa moist.
Cardiovascular: Normal peripheral perfusion, No edema.
Respiratory: Respirations are non-labored.
Gastrointestinal: Abdomen nondistended.
Back: Normal range of motion, Normal alignment.
Musculoskeletal: Normal ROM, normal strength.
Neurological: Alert and oriented to person, place, time, and situation, No focal neurological deficit observed.
Psychiatric: Cooperative, appropriate mood & affect.
PLAN
Orders were placed for further evaluation and management of low blood sugar.
DIFFERENTIAL DIAGNOSIS
The Differential Diagnosis includes, in no particular order and is not limited to:
1. Hypoglycemia due to excessive insulin.
2. Insulin overdose.
3. Delayed meal after insulin administration.
4. Altered insulin absorption.
5. Insulin injection site variability.
6. Renal insufficiency affecting insulin clearance.
7. Malnutrition or anorexia.
8. Alcohol consumption interfering with glucose production.
9. Hypopituitarism.
10. Addisons disease.
CARE-UPDATE
03/19/25 - 06:02
The patient continues to experience episodes of chest pain and respiratory distress. There was one instance of coughing up blood. Hyperglycemia has been identified and noted by the nursing staff. Communication challenges persist; the patient has
difficulty hearing and understanding responses. Further evaluation and adjustments to the treatment plan may be required to address these ongoing issues.
Disposition:
SUMMARY OF ENCOUNTER
The patient is a 70-year-old male with a known history of diabetes mellitus who presented to the emergency department with elevated blood sugar and episodes of nausea and vomiting. While in the emergency department, the patient experienced one
episode of bloody emesis. His blood sugar was noted to be elevated, and insulin was administered as part of his management.
DISPOSITION
Admit to the hospitalist service.
ASSESSMENT
The patient is experiencing hyperglycemia and gastrointestinal symptoms including nausea, vomiting, and bloody emesis. The elevated blood sugar and symptoms may indicate poor diabetic control and potential complications.
EMERGENCY TREATMENTS ADMINISTERED
Insulin was administered to address elevated blood sugar levels.
PLAN
The plan includes admission to the hospitalist service for further evaluation and management of hyperglycemia and associated gastrointestinal symptoms.
FOLLOW-UP INSTRUCTIONS
Admit to the hospitalist service for ongoing care and monitoring.
MEDICATION RECONCILIATION
Insulin was administered in the emergency department to manage elevated blood sugar levels.
MEDICAL DECISION MAKING
- Number and Complexity of Problems Addressed: Chronic conditions affecting care include diabetes mellitus. The differential diagnosis for gastrointestinal symptoms includes possible gastrointestinal bleeding and diabetic gastroparesis.
- Data:
Category 1: No specific tests ordered or reviewed are mentioned, but insulin administration occurred for elevated blood sugar.
- Risk:
Prescription medication, insulin, was administered. Potential for increased risk due to episodes of bloody emesis, indicating possible gastrointestinal bleeding. Admission to the hospital was deemed necessary for monitoring and management.
DIAGNOSIS
1. Hyperglycemia (ICD-10: E11.65)
2. Nausea and vomiting with unspecified bleeding (ICD-10: R11.2, K92.2)
Past History
Past History
ED Past Medical History: COPD, CVA, HTN, Hypercholesterolemia, IDDM and Psychiatric (Depression)
ED Past Surgical History: Appendectomy, Orthopedic and Other (DISTRICT ADMINISTRATIVE ASSISTANT shunt)
Social History
Tobacco: Non-smoker
Alcohol: None
Drug: None
Personal: Single
Living: prison
Phy Exam
Physical Exam
Physical Exam:
.
Course
Orders/Labs/Results
Orders:
Orders
03/19/25 04:25
B-Hydroxybutyrate Urgent
Basic Metabolic Panel Q2H
CMP [Comprehensive Metabolic Panel] Urgent
Complete Blood Count/With Diff Urgent
Glycohemoglobin (HgbA1c) Urgent
03/19/25 04:31
Bedside Glucose- Treatment Q1H
IV Insert/Care/Rem.- Treatment PRN
0.9% Sodium Chloride 1000 ml [Nss] 1,000 ml IV BOLUS
03/19/25 04:44
Arterial Blood Gas Urgent
%Oxygen/Room Air: ra
03/19/25 05:41
Insulin Human Regular [Novolin R] 9 units IV NOW STA
03/19/25 05:56
Reg Insulin 100 Units/100 ml [Novolin R Insulin Infusion] 100 units in 100 ml IV NOW
03/19/25 Breakfast
NPO
Allow oral meds: Yes
Allow clear liquids: No
NPO with Ice Chips: Yes
03/19/25 06:26
Pantoprazole 80 mg/100 ml Nss [Protonix] 80 mg in 100 ml IV NOW
03/19/25 06:30
Pantoprazole 80 mg/100 ml Nss [Protonix] 80 mg in 100 ml IV Q10H
03/19/25 06:49
Basic Metabolic Panel Stat
03/19/25 08:26
Admit/Transfer Patient As Directed
Co-Sign Provider:
Level of Care: Inpatient admission
Assign to:: IMU- Intermediate Care
Physician / Group: Hospitalist
Diagnosis: DKA
Reason for Hospitalization: DKA
Expected length of stay greater than two midnights?: Yes
ELOS- Estimated Length of Stay in days: 3
I certify the patient meets the requirements for IP care: Yes
PRN Pain Medication Management As Directed
May give lesser potent ordered pain med per pt: Yes
preference::
Protocol:: Medication orders for pain may be administered in a
manner that supports deferring to patient preference
when the pt is:
- Requesting an ordered lesser potent pain medication.
Least to most potent pain medications are defined
as: acetaminophen < NSAID < tramadol < opioids
(morphine, oxycodone, hydromorphone).
- Requesting a lesser dose of the same medication IF
ORDERED.
- Requesting a less intrusive route of administration
if both routes are prescribed by the provider (PO <
IV).
03/19/25 08:29
Obstruct Series W/PA Chest [CR Obstruct Series W/pa Chest] Urgent
Comment:
Reason For Exam: vomiting
03/19/25 08:39
Code Status As Directed
Resuscitation Status: Full Code
03/19/25 08:59
DNR Bracelet Application ONCE
03/19/25 08:59
Code Status As Directed
Resuscitation Status: Do not resuscitate
Reached after discussion with pt or family/Healthcare POA: Yes
Physician note:: per D/W Sister
03/19/25 11:09
Levothyroxine [Synthroid] 50 mcg PO DAILY@0600
Reg Insulin 100 Units/100 ml [Novolin R Insulin Infusion] 100 units in 100 ml IV PER PROTOCOL
Initial dose in units/hr, then titrate:: 4
03/19/25 11:09
Activity As Directed
Activity Level: Encourage Progressive Amb
Bedside Glucose Monitoring As Directed
Frequency: Q1H
Intake/ Output As Directed
Frequency: Per unit guidelines
Notify MD As Directed
Notify physician if: Nurse to contact provider when glucose reaches 250 to obtain orders for D5 0.45 NaCl
Sequential Compression Device [Pneumatic Compression Sleeves] As Directed
Type: Knee high
Vital Signs As Directed
Frequency: Per unit guidelines
DX Deep Vein Thrombosis Video Routine
03/19/25 12:00
Divalproex Delayed Rel. 12 Hr [Depakote (12 Hr Release)] 500 mg PO DAILY
Sertraline HCl [Zoloft] 150 mg PO DAILY
03/19/25 12:11
Basic Metabolic Panel Q4
03/19/25 14:52
Urinalysis Reflex To Culture Urgent
Date Specimen was Collected: 03/19/25
Time Specimen was Collected: 14:48
Comment: clean catch only
03/19/25 16:00
Buspirone [Buspar] 10 mg PO TID
03/19/25 18:06
Basic Metabolic Panel Q2H
Valproic Acid Level [Depakane] Routine
03/19/25 22:00
Basic Metabolic Panel Q4
Divalproex Delayed Rel. 12 Hr [Depakote (12 Hr Release)] 500 mg PO HS
Melatonin 10 mg PO HS
Rosuvastatin Calcium [Crestor] 40 mg PO HS
03/20/25 05:12
Basic Metabolic Panel IN AM
Complete Blood Count/With Diff IN AM
Abnormal Lab Results
03/19/25 03/19/25 03/19/25
04: 04:28 04:44
RBC 4.02 L 10^6/uL
(4.70-6.10)
Hgb 12.5 L g/dL
(13.0-18.0)
Hct 36.4 L %
(39.0-52.0)
MCH 31.1 H pg
(27.0-31.0)
MPV 11.9 H fL
(7.4-10.4)
Absolute Lymphs (auto) 0.9 L 10^3/uL
(1.2-3.4)
Neutrophils % 82.0 H %
(42.2-75.2)
Lymphocytes % 12.4 L %
(20.5-51.1)
pH 7.34 L
(7.35-7.45)
pCO2 34 L mmHg
(35-48)
pO2 75 L mmHg
(83-108)
HCO3 18.3 L mmol/L
(21-28)
Potassium 5.3 H mmol/L
(3.5-5.1)
Chloride 97 L mmol/L
(98-107)
Carbon Dioxide 20 L mmol/L
(22-30)
BUN 35 H mg/dl
(9-20)
Glucose 620 H* mg/dl
(70-99)
Hemoglobin A1c 10.4 H %
(4.0-5.6)
ALT 62 H U/L
(0-50)
Total Protein 5.8 L g/dl
(6.3-8.2)
B-Hydroxybutyrate > 9.0 H mmol/L
(0.02-0.27)
POC Glucose 562 H* mg/dl
(70-99)
03/19/25 03/19/25 03/19/25
05:42 06:38 06:49
RBC
Hgb
Hct
MCH
MPV
Absolute Lymphs (auto)
Neutrophils %
Lymphocytes %
pH
pCO2
pO2
HCO3
Potassium
Chloride
Carbon Dioxide 15 L mmol/L
(22-30)
BUN 35 H mg/dl
(9-20)
Glucose 570 H* mg/dl
(70-99)
Hemoglobin A1c
ALT
Total Protein
B-Hydroxybutyrate
POC Glucose 552 H* mg/dl 490 H* mg/dl
(70-99) (70-99)
03/19/25 04:25
03/19/25 06:49
Vital Signs
Initial and Last Documented VS:
Initial Vital Signs
Temp Pulse Resp Pulse Ox
98.6 F 98 22 99
03/19/25 04:17 03/19/25 04:17 03/19/25 04:17 03/19/25 04:17
Last Documented Vital Signs
Temp Pulse Resp BP Pulse Ox
97.7 F 60 20 163/83 97
03/20/25 23:00 03/21/25 02:00 03/21/25 02:00 03/21/25 02:00 03/21/25 02:00
*Pulse Oximetry
SaO2: 95
Oxygen Mode of Delivery: Room air
Patient hypoxic: no
*Critical Care Note
Total Time (30-74mins, 75-104mins- exclusive of procedures): Not Applicable
ED Attending Note
-
Portions of this chart may have been created with voice recognition software.� Occasional wrong word or��sound alike� substitutions may have occurred due to the inherent limitations of voice recognition software.
Discharge Plan
Departure
Patient Disposition: Admit
Date of Disposition: 03/19/25
Time of Disposition: 06:06
Presentation/result/management discussed w/ accepting MD/DO: Hospitalist
Condition: Good
Discharge Problem:
Hyperglycemia, DKA (diabetic ketoacidosis), Hematemesis
Interventions
Interventions:
*Risk Screen - Suicide Last Done: 03/19/25 04:17
*General Assessment Last Done: 03/19/25 04:17
*Neglect/Abuse Screening Last Done: 03/19/25 04:17
*ED- Fall Risk Assessment Last Done: 03/19/25 04:17
*ED COVID-19 Vaccine History Last Done: 03/19/25 04:17
*Nursing Disposition Last Done: 03/19/25 11:26
ED- Neurological Assessment Last Done: 03/19/25 05:07
Discharge Date and Time
Discharge Date/Time: 03/19/25 11:27
[2025-03-19 05:43] LABS: Glucose - Point of Care 552 mg/dl (70-99)
[2025-03-19 05:43] LABS: ALT (SGPT) 62 U/L (0-50); AST (SGOT) 42 U/L (17-59); Albumin 3.9 g/dl (3.5-5.0); Alkaline Phosphatase 100 U/L (38-126); Blood Urea Nitrogen 35 mg/dl (9-20); Calcium 9.0 mg/dl (8.4-10.2); Carbon Dioxide 20 mmol/L (22-30); Chloride 97 mmol/L (98-107); Estimated Creatinine Clearance 62 ml/min; Glucose 620 mg/dl (70-99); Potassium 5.3 mmol/L (3.5-5.1); Sodium 138 mmol/L (135-145); Total Protein 5.8 g/dl (6.3-8.2); eGFR > 60.00
[2025-03-19] MEDS: NOVOLIN R 9 UNITS IV (05:58)
[2025-03-19] MEDS: NOVOLIN R INSULIN INFUSION 100 IV (06:35)
[2025-03-19 06:39] LABS: Glucose - Point of Care 490 mg/dl (70-99)
[2025-03-19 07:14] LABS: Blood Urea Nitrogen 35 mg/dl (9-20); Calcium 8.9 mg/dl (8.4-10.2); Carbon Dioxide 15 mmol/L (22-30); Chloride 102 mmol/L (98-107); Estimated Creatinine Clearance 57 ml/min; Glucose 570 mg/dl (70-99); Potassium 4.5 mmol/L (3.5-5.1); Sodium 141 mmol/L (135-145); eGFR 59.10
--- NOTE | 2025-03-19 08:29 | HPS.HSE ---
Addendum entered and electronically signed by Lyndsey Broussard MD 03/19/25 08:59:
Spoke to sister-
Pt has PAD had an angiogram
NPH with [employer]A DIRECTOR OF HOME HEALTH SALES shunt
One seizure in the past
Sister also confirmed pt is a DNR
Original Note:
Family Physician
-
Family Physician: Jus Cárdenas
Chief Complaint
-
Elevated blood sugars
History of Present Illness
70-year-old male with vomiting, elevated blood sugars. Patient is a poor historian. History per ER and records
Medical History
Past Medical History
Past Medical History: Reports Other
Additional Past Medical History:
Hyperlipidemia, hypothyroidism, GERD, PVD, anemia, arthritis, hypertension, recurrent falls, anxiety, history of alcohol abuse in remission, COPD, dysarthria following stroke, type 2 diabetes, oropharyngeal dysphagia, ataxia following stroke,
diabetic foot ulcer, cognitive dysfunction, history of pericardial effusion, diabetic neuropathy
Past Surgical History: Reports Other
Additional Past Surgical History:
Eye surgeries, hand surgery, appendectomy, [employer] HOME HEALTH SALES shunt for NPH
Social History
Alcohol: Former
Living: [facility]
Family History
Family History: Not pertinent
Allergies / Home Medications
Allergies reflects when Allergies were last updated in [employer].
Home Medications with original date entered in [employer]
Allergy/Medication List:
Allergies
Allergy/AdvReac Type Severity Reaction Status Date / Time
codeine Allergy Unknown Verified 11/03/24 15:29
Penicillins Allergy Hives Verified 11/03/24 15:29
Home Medications
acetaminophen 325 mg tablet (Tylenol) 650 mg PO Q4HPRN PRN temp>100F 06/30/22
amlodipine 10 mg tablet (Norvasc) 10 mg PO DAILY Blood Pressure 06/30/22
bisacodyl 10 mg rectal suppository (Dulcolax (bisacodyl)) 10 mg [place] DAILYPRN PRN if mom is ineffective after 24hrs 06/30/22
carvedilol 12.5 mg tablet (Coreg) 12.5 mg PO BID Blood Pressure 06/30/22
clopidogrel 75 mg tablet (Plavix) 75 mg PO DAILY Blood Clot Prevention/Tx 06/30/22
ezetimibe 10 mg tablet (Zetia) 10 mg PO HS High Cholesterol 06/30/22
ferrous sulfate 325 mg (65 mg iron) tablet 325 mg PO DAILY Supplement 06/30/22
insulin glargine 100 unit/mL (3 mL) subcutaneous pen (Lantus Solostar U-100 Insulin) 25 unit SC DAILY Diabetes 06/30/22
levothyroxine 50 mcg tablet (Synthroid) 50 mcg PO DAILY Thyroid 06/30/22
magnesium hydroxide 400 mg/5 mL oral suspension (Milk of Magnesia) 30 ml PO [id number] PRN if no bm x 3 days 06/30/22
meclizine 12.5 mg tablet 12.5 mg PO DAILY Allergies 06/30/22
sodium phosphates 19 gram-7 gram/118 mL enema (Fleet Enema) 118 ml [place] DAILYPRN PRN if dulcolax is ineffective after 24hrs 06/30/22
insulin aspart U-100 100 unit/mL (3 mL) subcutaneous pen (Novolog FlexPen U-100 Insulin aspart) 4 sliding scale dose SC ACHS Diabetes 08/14/23
acetaminophen 325 mg tablet 650 mg PO [id number] PRN mild pain 02/04/24
buspirone 10 mg tablet 10 mg PO TID Mental Health/Anxiety 02/04/24
cholecalciferol (vitamin D3) 125 mcg (5,000 unit) tablet 125 mcg PO DAILY Supplement 02/04/24
divalproex 500 mg tablet,delayed release 500 mg PO HS 02/04/24
lisinopril 40 mg tablet 40 mg PO DAILY Blood Pressure 02/04/24
melatonin 10 mg tablet 10 mg PO HS Sleep 02/04/24
pantoprazole 20 mg tablet,delayed release 20 mg PO DAILY Gastrointestinal Issue 02/04/24
sertraline 50 mg tablet 150 mg PO DAILY Mental Health/Anxiety 02/04/24
sucralfate 1 gram tablet 1 g PO DAILY Gastrointestinal Issue 02/04/24
insulin glargine 100 unit/mL (3 mL) subcutaneous pen (Lantus Solostar U-100 Insulin) 8 unit SC HS Diabetes 09/11/24
oxycodone 10 mg tablet 10 mg PO Q8HPRN PRN severe pain #5 tabs 11/03/24
benzonatate 100 mg capsule 100 mg PO TIDPRN PRN cough 03/19/25
collagenase clostridium histo. 250 unit/gram topical ointment (Santyl) 1 applic topical DAILY right 5th metatarsal 03/19/25
collagenase clostridium histo. 250 unit/gram topical ointment (Santyl) 1 applic topical DAILYPRN PRN right 5th matatarsal 03/19/25
divalproex 250 mg tablet,delayed release 500 mg PO DAILY 03/19/25
rosuvastatin 40 mg tablet (Crestor) 40 mg PO HS 03/19/25
therapeutic multivitamin 1 tab PO DAILY 03/19/25
Review of Systems
-
Unable to obtain full review of systems at this time due to: Dementia
A 12 point ROS was completed and negative except as noted: No
Physical Exam
Vital Signs
Vital Signs
Temp Pulse Resp BP Pulse Ox
98.6 F 107 25 140/60 93
03/19/25 04:17 03/19/25 07:00 03/19/25 07:00 03/19/25 07:00 03/19/25 07:00
Physical Exam
General: No Apparent Distress
Respiratory: Clear
Cardiac: S1/S2 and Regular Rhythm
GI: Soft, Non Tender and Normal Bowel Sounds
Skin: Ulcers (5th toe ulcer)
Neuro: Awake and Alert
Laboratory Results
-
03/19/25 04:25
Laboratory Results
pH 7.34 (7.35-7.45) L 03/19/25 04:44
pCO2 34 mmHg (35-48) L 03/19/25 04:44
pO2 75 mmHg (83-108) L 03/19/25 04:44
HCO3 18.3 mmol/L (21-28) L 03/19/25 04:44
Total Bilirubin 0.6 mg/dl (0.2-1.3) 03/19/25 04:25
AST 42 U/L (17-59) 03/19/25 04:25
ALT 62 U/L (0-50) H 03/19/25 04:25
Alkaline Phosphatase 100 U/L (38-126) 03/19/25 04:25
Impression/Plan
-
IMPRESSION/PLAN:
70 y/o male with elevated blood sugar.
# DKA
Type 2 diabetes ,check hemoglobin Q6h-Uxqum
Patient normally on Lantus insulin 25 units in the morning and 8 units in the evening
Gap 24
Continue insulin drip
IV fluids
Follow BMP
Rule out sources of infection-check chest x-ray, urinalysis with culture
# Nausea and vomiting
Bloody emesis
Started on PPI
Watch Hb and see if he has continued bloody vomiting, then needs GI eval
Check obstruction series to rule out constipation/obstruction
Hold Plavix
# COPD -Stable
# Hypertension-hold amlodipine, Coreg
# Chronic anemia
# Hyperlipidemia-continue Zetia, statin
# Hypothyroidism-continue levothyroxine 50 mcg daily
# History of CVA-hold Plavix, continue Zetia, statin
# Chronic pain-narcotic dependent
# History of [employer] SALES shunt
# GERD-on Carafate and PPI as outpatient. Hold Carafate now
# Peripheral artery disease
# Cognitive dysfunction
# Anxiety and depression-continue BuSpar, Depakote, sertraline
# DVT prophylaxis-SCDs
# Full code for now
Discussed with ER nursing
Left a message for sister
time over 75 min
[2025-03-19] MEDS: PROTONIX 100 IV ×2 (09:16→18:24)
[2025-03-19 10:41] LABS: Glycohemoglobin (HgbA1c) 10.4 % (4.0-5.6)
--- NOTE | 2025-03-19 11:10 | PTCARENOTE ---
Pt arrived to floor on stretcher from ED. Pulled over to bed; Insulin gtt infusing into L wrist INT @ 8.9ml's/hr, Accucheck done = 313; Insulin drip adjusted to 5ml's/hr per protocol. Protonix drip infusing into R wrist INT @ 10ml's/hr; AAO x
2; Knee high SCD's placed. Pt incontinent at baseline - condom cath #25 placed; Pt oriented to room, call villalobos within reach. Will continue to monitor and assess.
[2025-03-19 11:31] LABS: Glucose - Point of Care 313 mg/dl (70-99)
[2025-03-19] MEDS: DEPAKOTE (12 HR RELEASE) 500 MG PO (12:23)
[2025-03-19] MEDS: SYNTHROID 50 MCG PO (12:23)
[2025-03-19] MEDS: ZOLOFT 150 MG PO (12:23)
[2025-03-19 12:38] LABS: Blood Urea Nitrogen 44 mg/dl (9-20); Calcium 9.2 mg/dl (8.4-10.2); Carbon Dioxide 27 mmol/L (22-30); Chloride 105 mmol/L (98-107); Estimated Creatinine Clearance 39 ml/min; Glucose 278 mg/dl (70-99); Potassium 4.0 mmol/L (3.5-5.1); Sodium 143 mmol/L (135-145); eGFR 42.83
[2025-03-19 12:44] LABS: Glucose - Point of Care 250 mg/dl (70-99)
[2025-03-19 13:49] LABS: Glucose - Point of Care 200 mg/dl (70-99)
--- NOTE | 2025-03-19 14:04 | W.PN.UPDATE ---
Update Note
Progress Note Update
Anion gap closed
Discontinue insulin drip 1 hour after Lantus insulin given
Lantus insulin ordered
Sliding scale ordered
Pur�ed diet ordered pending speech evaluation
Check echo given x-ray findings
[2025-03-19 14:44] LABS: Glucose - Point of Care 202 mg/dl (70-99)
[2025-03-19] MEDS: LR 1000 IV (14:47)
[2025-03-19] MEDS: LANTUS 0.25 UNITS SC (14:53)
[2025-03-19] MEDS: NOVOLOG FLEXPEN 4 UNITS SC (14:54)
[2025-03-19 15:13] LABS: Urine Character Clear (Clear)
[2025-03-19 15:42] LABS: Urine Red Blood Cell 0-2 /HPF (0-2); Urine White Cell 0-2 /HPF (0-5)
--- NOTE | 2025-03-19 16:22 | PTOTSP ---
Speech Therapy Evaluation:
Pt with known mild oropharyngeal dysphagia s/p 2 VSE's completed in October 2024 and December 2024. VSE in October 2024 with recommendations for mildly thick liquids and VSE in December 2024 with recommendations for thin liquids. Suspect etiology of swallow
dysfunction likely related to chronic factors including GERD, CVA, COPD, and cognitive dysfunction. On this date, evaluation somewhat limited due to pt refusals. Pt with consistent s/sx of aspiration with thin liquids. No s/sx of aspiration with
mildly thick liquids or puree. No consolidation identified on Chest/Abdomen XR.
Recommend:
1. IDDSI 4 (Puree) and IDDSI 2 (mildly thick liquids)
2. Medications crushed in puree
3. Strict aspiration and reflux precautions
4. LOFT RIGGER to follow to monitor tolerance of diet, assess candidacy for liquid advancement, and determine if pt would benefit from repeat VSE
--- NOTE | 2025-03-19 16:42 | CM ---
Initial Assessment Completed by Taylor.
Patient is total care at [facility]. Patient can feed and brush his teeth with set up, uses a wheelchair, but total care confirmed by sister.
PLAN: Return to LTC at [facility]- return referral sent.
[2025-03-19] MEDS: BUSPAR 10 MG PO (17:34)
[2025-03-19] MEDS: NOVOLOG FLEXPEN-LOW RESISTANCE 1 UNITS SC (18:13)
[2025-03-19 18:15] LABS: Hematocrit 31.4 % (39.0-52.0); Hemoglobin 10.9 g/dL (13.0-18.0)
[2025-03-19 18:17] LABS: Glucose - Point of Care 186 mg/dl (70-99)
[2025-03-19 18:31] LABS: Blood Urea Nitrogen 46 mg/dl (9-20); Calcium 9.0 mg/dl (8.4-10.2); Carbon Dioxide 33 mmol/L (22-30); Chloride 105 mmol/L (98-107); Estimated Creatinine Clearance 39 ml/min; Glucose 187 mg/dl (70-99); Potassium 4.2 mmol/L (3.5-5.1); Sodium 143 mmol/L (135-145); eGFR 42.83
[2025-03-19 18:36] LABS: Depakane 55.7 ug/ml (50.0-120.0)
--- NOTE | 2025-03-19 21:04 | W.PN.UPDATE ---
Update Note
Progress Note Update
patient is nauseous and vomiting, unable to tolerate PO medications. Talked to pharmacist regarding equivalent IV medications. Order placed for Valporic acid 250 Mg IV [id number] to prevent seizures.
[2025-03-19] MEDS: CRESTOR PO (21:07)
[2025-03-19] MEDS: MELATONIN PO (21:07)
[2025-03-19] MEDS: BUSPAR PO (21:07)
[2025-03-19] MEDS: ZOFRAN 4 MG IV (21:17)
[2025-03-19] MEDS: LANTUS 0.08 UNITS SC (21:17)
[2025-03-19 21:28] LABS: Glucose - Point of Care 181 mg/dl (70-99)
[2025-03-19 22:28] LABS: Blood Urea Nitrogen 47 mg/dl (9-20); Calcium 8.8 mg/dl (8.4-10.2); Carbon Dioxide 31 mmol/L (22-30); Estimated Creatinine Clearance 44 ml/min; Glucose 198 mg/dl (70-99); eGFR 49.77
[2025-03-19 22:34] LABS: Chloride 105 mmol/L (98-107); Potassium 4.2 mmol/L (3.5-5.1); Sodium 142 mmol/L (135-145)
[2025-03-19] MEDS: DEPACON 52.5 MG IV (23:08)
[2025-03-20] VITALS (14 sets, daily range): BP systolic 129–172; BP diastolic 54–105; PULSE 71–73
--- NOTE | 2025-03-20 01:44 | PTCARENOTE ---
assumed care of patient. pt is oriented x2- oriented to self and place, not year. pt is x2 assist in the bed. upon entering patients room, pt noted to have vomited on self, bile like emesis noted. notified covering JR. JAVA DEVELOPER, IV zofran given. PO meds
held for the night. full bed bath given. new condom cath applied. q2t, cream applied to blanchable area on sacrum. bed alarm on. care ongoing.
[2025-03-20] MEDS: LR 1000 IV (02:52)
[2025-03-20] MEDS: PROTONIX 100 IV (03:39)
[2025-03-20] MEDS: DEPACON 52.5 MG IV ×4 (05:07→23:16)
[2025-03-20] MEDS: SYNTHROID PO (05:07)
[2025-03-20 05:28] LABS: Hematocrit 32.7 % (39.0-52.0); Hemoglobin 10.9 g/dL (13.0-18.0); Mean Corp Hgb Conc. 33.3 g/dL (33.0-37.0); Mean Corpuscular Volume 90.3 fL (80.0-94.0); Nucleated Red Blood Cells % 0 % (-); Platelet Count 225 10^3/uL (130-400); Red Cell Dist. Width 13.3 % (11.5-14.5)
[2025-03-20 05:57] LABS: Blood Urea Nitrogen 44 mg/dl (9-20); Calcium 8.9 mg/dl (8.4-10.2); Carbon Dioxide 31 mmol/L (22-30); Chloride 107 mmol/L (98-107); Estimated Creatinine Clearance 48 ml/min; Glucose 188 mg/dl (70-99); Potassium 4.2 mmol/L (3.5-5.1); Sodium 145 mmol/L (135-145); eGFR 54.07
[2025-03-20] MEDS: ZOLOFT 150 MG PO (08:04)
[2025-03-20] MEDS: BUSPAR 10 MG PO ×3 (08:05→20:08)
[2025-03-20] MEDS: LANTUS 0.25 UNITS SC (08:05)
[2025-03-20 08:07] LABS: Glucose - Point of Care 179 mg/dl (70-99)
[2025-03-20] MEDS: NOVOLOG FLEXPEN-LOW RESISTANCE 1 UNITS SC (08:13)
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
[2025-03-20] MEDS: CARAFATE 1 GRAM PO (10:47)
[2025-03-20] MEDS: PROTONIX IV 40 MG IV (10:47)
[2025-03-20] MEDS: PLAVIX 75 MG PO (10:47)
[2025-03-20] MEDS: NSS (PRESERVATIVE FREE) 10 ML IV (10:47)
[2025-03-20] MEDS: COREG 12.5 MG PO ×2 (10:47→20:08)
[2025-03-20] MEDS: ANTIVERT 12.5 MG PO (11:28)
[2025-03-20 12:34] LABS: Glucose - Point of Care 239 mg/dl (70-99)
[2025-03-20] MEDS: NOVOLOG FLEXPEN-LOW RESISTANCE 2 UNITS SC (12:35)
[2025-03-20 17:25] LABS: Glucose - Point of Care 282 mg/dl (70-99)
[2025-03-20] MEDS: NOVOLOG FLEXPEN-LOW RESISTANCE 3 UNITS SC (18:01)
[2025-03-20] MEDS: MELATONIN 10 MG PO (20:08)
[2025-03-20] MEDS: CRESTOR 40 MG PO (20:08)
[2025-03-20 21:38] LABS: Glucose - Point of Care 367 mg/dl (70-99)
[2025-03-20] MEDS: NOVOLOG FLEXPEN 5 UNITS SC (22:18)
[2025-03-20] MEDS: LANTUS 0.08 UNITS SC (22:18)
[2025-03-21] VITALS (9 sets, daily range): BP systolic 114–163; BP diastolic 43–88
--- NOTE | 2025-03-21 00:21 | PTCARENOTE ---
assumed care of patient, pt is AAOx2- knows he is in [facility], oriented to self but forgetful at times. pt in chair at beginning of the shift, placed back to bed x2 assist with RW. no complaints of nausea, minimal abdominal pain. bed
alarm on. pt able to take pills with applesauce without issues. blood sugar tonight, 367, notified covering SOAP SLABBER, 5 units of insulin and lantus given. care ongoing.
[2025-03-21 00:40] LABS: Glucose - Point of Care 277 mg/dl (70-99)
[2025-03-21 05:12] LABS: Hematocrit 32.1 % (39.0-52.0); Hemoglobin 11.0 g/dL (13.0-18.0); Mean Corp Hgb Conc. 34.3 g/dL (33.0-37.0); Mean Corpuscular Volume 91.2 fL (80.0-94.0); Platelet Count 191 10^3/uL (130-400); Red Cell Dist. Width 13.1 % (11.5-14.5)
[2025-03-21] MEDS: SYNTHROID 50 MCG PO (05:12)
[2025-03-21] MEDS: DEPACON 52.5 MG IV ×2 (05:12→13:03)
[2025-03-21 05:32] LABS: Blood Urea Nitrogen 31 mg/dl (9-20); Calcium 8.9 mg/dl (8.4-10.2); Carbon Dioxide 33 mmol/L (22-30); Chloride 104 mmol/L (98-107); Estimated Creatinine Clearance 67 ml/min; Glucose 159 mg/dl (70-99); Potassium 4.2 mmol/L (3.5-5.1); Sodium 139 mmol/L (135-145); eGFR > 60.00
--- NOTE | 2025-03-21 07:47 | W.PN.HOSP.TC ---
Today's Communication/Plan
-
keep in-house to monitor BGL on pre-meal insulin and BP
likely DC back to LTC tomorrow
OK to transfer to med/surg
Assessment / Plan
Assessment / Plan
70 y/o man with hx essential HTN, COPD, NPH s/p shunt, PAD, seizure, HLD, CVA, IDDM presents to the ER with vomiting and elevated blood sugars found to be in DKA. AG on admit 24, now closed and patient on subQ insulin.
Chest/Abdomen X-Ray
IMPRESSION:
1. Pulmonary vasculature is mildly increased. Please correlate for signs of congestive heart failure
2. There is no evidence of small bowel obstruction or perforation
3. There are calcifications in both kidneys which are linearly oriented from the renal pelvis. These could be vascular calcifications versus developing a developing staghorn calcification
# DKA
Patient normally on Lantus insulin 25 units in the morning and 8 units in the evening
-s/p Insulin gtt with resolution of gap and conversion to subQ insulin, home dosing resumed. Possible gastroenteritis triggered DKA
-A1c = 10.4%
-start pre-meal insulin - adjust as needed
# Nausea and vomiting
-*no bloody vomitus witnessed overnight
-obstruction series nl
-change IV PPI gtt to once daily
-will resume Plavix given stable Hg and no e/o lars bleeding; hg stable this AM On Plavix
-monitor PO intake
-stop IVF as x-ray shows mild congestion and patient on 2L O2
[place] resident, heavy assist at baseline
-PT recommends back to LTC with PT
JESSE
-s/p fluids
-resolved
# COPD -Stable
Essential HTN
-resume STEM FRAZER Coreg
-continue to hold Amlodipine and Lisinopril - monitor BP and resume if hypertensive
# Chronic anemia
# Hyperlipidemia-continue Zetia, statin
# Hypothyroidism-continue levothyroxine 50 mcg daily
# History of CVA- resume Plavix, continue Zetia, statin
# Chronic pain-narcotic dependent
# History of BIOLOGICAL INSPECTOR shunt
# GERD-on Carafate and PPI as outpatient. Resume Carafate, IV PPI
# Peripheral artery disease
# Cognitive dysfunction
# Anxiety and depression-continue BuSpar, Depakote, sertraline
# DVT prophylaxis- start lovenox subQ as no e/o bleeding
DNR - confirmed with family
Anticipated Discharge: 24 - 48 hours
Subjective/Interval History
-
Date of Service: March 21, 2025
he is feeling better
no more vomiting
eating and drinking
no fevers
Objective Data
-
Labs:
Laboratory Results
03/21/25
05:03
WBC 7.9
Hgb 11.0 L
Hct 32.1 L
Plt Count 191
Sodium 139
Potassium 4.2
Chloride 104
Carbon Dioxide 33 H
BUN 31 H
Creatinine 1.0
Glucose 159 H
Calcium 8.9
Vital Signs:
Vital Signs
Temp Pulse Resp BP Pulse Ox
98.6 F 59 8 114/60 96
03/21/25 03:00 03/21/25 06:00 03/21/25 06:00 03/21/25 06:00 03/21/25 06:00
I&O
03/20/25 03/21/25 03/22/25
06:59 06:59 06:59
Intake Total 620 / 620
Output Total 200 / 200
Balance 420 / 420
Review of Systems
-
History Source: Patient
All other systems: Reviewed and negative
Physical Exam
-
General: No Apparent Distress
HEENT: PERRLA
Respiratory: Clear to Auscultation; Negative Wheezes
Cardiac: Regular Rhythm and S1/S2
GI: Soft and Nontender
Musculoskeletal: No Edema
Skin: Warm and Dry; Negative Rash
Neuro: AO x 3
Psych: Calm
Data Reviewed
-
Diagnostic Radiology: Report Reviewed by me
Labs: Labs Reviewed by me
[2025-03-21] MEDS: NOVOLOG FLEXPEN-LOW RESISTANCE SC ×3 (08:48→16:10)
[2025-03-21] MEDS: ZOLOFT 150 MG PO (08:49)
[2025-03-21] MEDS: NOVOLOG FLEXPEN 3 UNITS SC ×3 (08:49→16:34)
[2025-03-21 08:50] LABS: Glucose - Point of Care 122 mg/dl (70-99)
[2025-03-21] MEDS: LANTUS 0.25 UNITS SC (08:50)
[2025-03-21] MEDS: PLAVIX 75 MG PO (08:52)
[2025-03-21] MEDS: CARAFATE 1 GRAM PO (08:52)
[2025-03-21] MEDS: BUSPAR 10 MG PO ×3 (08:53→20:49)
[2025-03-21] MEDS: PROTONIX IV 40 MG IV (08:53)
[2025-03-21] MEDS: COREG 12.5 MG PO ×2 (08:53→20:48)
[2025-03-21] MEDS: ANTIVERT 12.5 MG PO (08:53)
[2025-03-21] MEDS: NSS (PRESERVATIVE FREE) 10 ML IV (08:54)
[2025-03-21 12:37] LABS: Glucose - Point of Care 121 mg/dl (70-99)
--- NOTE | 2025-03-21 15:25 | PTCARENOTE ---
rec'd pt from IMU. transferred to bed. denies pain. oriented to room . call villalobos in reach
[2025-03-21 16:03] LABS: Glucose - Point of Care 107 mg/dl (70-99)
[2025-03-21] MEDS: LOVENOX 40 MG SC (17:31)
[2025-03-21] MEDS: MELATONIN 10 MG PO (20:48)
[2025-03-21] MEDS: CRESTOR 40 MG PO (20:49)
[2025-03-21] MEDS: DEPAKOTE (12 HR RELEASE) 500 MG PO (20:49)
[2025-03-21] MEDS: ZETIA 10 MG PO (20:56)
[2025-03-21 21:11] LABS: Glucose - Point of Care 97 mg/dl (70-99)
[2025-03-21] MEDS: LANTUS 0.08 UNITS SC (21:54)
[2025-03-22] MEDS: SYNTHROID 50 MCG PO (05:43)
[2025-03-22] MEDS: DEPAKOTE (12 HR RELEASE) PO (08:11)
[2025-03-22 08:27] LABS: Glucose - Point of Care 48 mg/dl (70-99)
[2025-03-22 08:27] LABS: Glucose - Point of Care 48 mg/dl (70-99)
[2025-03-22] MEDS: NOVOLOG FLEXPEN SC (08:38)
[2025-03-22] MEDS: NOVOLOG FLEXPEN-LOW RESISTANCE SC (08:39)
--- NOTE | 2025-03-22 08:43 | PTCARENOTE ---
Messaged Dr. Foster about patient morning poc glucose being 48- he has 25U lantus, 3U AC and SS insulin coverage on AUG for 0800 that I will hold at this time. See lab results and flowsheets for treatment details.
[2025-03-22] MEDS: LANTUS SC (08:45)
[2025-03-22 08:48] LABS: Glucose - Point of Care 59 mg/dl (70-99)
[2025-03-22] MEDS: BUSPAR PO (08:53)
[2025-03-22] MEDS: CARAFATE PO (08:53)
[2025-03-22] MEDS: ANTIVERT PO (08:53)
[2025-03-22] MEDS: ZOLOFT PO (08:53)
[2025-03-22] MEDS: PLAVIX PO (08:53)
[2025-03-22] MEDS: NSS (PRESERVATIVE FREE) 10 ML IV (08:54)
[2025-03-22] MEDS: PROTONIX IV 40 MG IV (08:54)
[2025-03-22 09:00] VITALS: BP 162/80
[2025-03-22] MEDS: COREG PO (09:00)
[2025-03-22 09:03] LABS: Glucose - Point of Care 77 mg/dl (70-99)
--- NOTE | 2025-03-22 09:30 | PN.DE.MGMTRT ---
Insulin Management
- -
03/22/2025: Diabetes Management Consult
70 year old male who presented to the ED from his NH with vomiting and elevated blood sugars found to be in DKA. AG on admit 24, now closed and patient on subQ insulin. PMH: HTN, COPD, NPH s/p shunt, PAD, seizure, HLD, CVA,HLD, Hypothyroidism,
GERD, PVD, Anemia, Arthritis, recurrent falls, Anxiety, h/o alcohol abuse in remission, dysarthria following stroke, oropharyngeal dysphagia, ataxia following stroke, diabetic foot ulcer, cognitive dysfunction, history of pericardial effusion,
diabetic neuropathy and IDDM.
AG on admission was 24, now closed and patient on subQ insulin. Patient normally takes Lantus 25 units in the morning and 8 units in the evening. A1C 10.4% up from 8.1% on 11/02/24, Cr 10.0, eGFR >60
Pt is awake, alert, disoriented, unable to discuss diabetes care plan due to dementia.No family at bedside
He is noted for an episode of hypoglycemia as low as 48, improved after treatment. HS glucose was 97, pt received Lantus 8 units.
Of note, Pt is a total feed for all meals. He is unable to recall if he was fed dinner last night or not. No documentation of how much he consumed yesterday.
Will make no changed to current regimen: Lantus 25 units in AM and 8 units @ HS and NovoLog 3 units AC with low corrective.
Discussed with Nurse and instructed to only give insulin if meal try has arrived and someone is at bedside feeding the patient, otherwise to hold the AC insulin.
Will cont to monitor
Diabetes History
- -
Type of Diabetes: 2 requiring insulin
Pre-Admission Diabetes Regimen
Lab Results
Hemoglobin A1c 10.4 % (4.0-5.6) H 03/19/25 04:25
Insulin Pump Settings
IP Diabetes Regimen
03/21/25 03/21/25 03/21/25
12:26 16:01 21:10
POC Glucose 121 H 107 H 97
03/22/25 03/22/25 03/22/25
08:24 08:26 08:46
POC Glucose 48 L* 48 L* 59 L
03/22/25
09:02
POC Glucose 77
Patient Education
[2025-03-22 09:34] VITALS: BP 160/80
--- NOTE | 2025-03-22 10:09 | CM ---
Chart reviewed and patient was admitted from [facility] nursing [facility] and plan is for patient to return to [facility] when stable. payroll accounting manager met with patient this am to confirm plan.
[facility]
Report [phone]

Plan; Patient to return to [facility] long-term when stable.
--- NOTE | 2025-03-22 10:11 | PN.CDI ---
CDI
- -
CDI:
Physician Documentation Request
Admit Date: 03/19/25 09:02
Dear Doctor Cristian,
Clinical Indicators:
Patient admitted with DKA.
03/20, 03/21 RN skin/wound assessments: Sacrum Stage 1 Pressure Injury
Treatment: Antifungal ointment, silicone border foam dressing
Physician documentation of the type and location of wounds is required for compliant documentation. Based on the above clinical findings and your assessment, please provide the following in your progress note:
1. Location of the ulcer/wound, including laterality.
2. Type (etiology) of ulcer/wound:
- Pressure (decubitus) ulcer
- Other, please specify
3. If a pressure ulcer, please also include the stage* of the ulcer:
- Stage 1 - Skin intact, non-blanchable redness
- Stage 2 - Partial thickness loss of dermis, includes intact or open blister
- Stage 3 - Full thickness tissue not including bone, tendon or muscle
- Stage 4 - Full thickness tissue loss, including exposed bone, tendon or muscle
- Unstageable - Full thickness loss in which the base of the ulcer is covered by slough (yellow, becerril, butterfield, green or brown) and/or eschar (becerril, brown or black) in the wound bed.
- Unable to determine
Use of terms such as suspected, likely, concern for, or probable (associated with a specific diagnosis that is being evaluated, monitored, or treated as if it exists) are acceptable and can be coded in the inpatient setting, when documented at the
time of discharge.
Thank you,
JOSÉ LUIS Russell RN
CDI Specialist
available via tiger text
Please use your independent medical judgment in providing your response.
*Source: National Pressure Ulcer Advisory Panel (NPUAP)
[2025-03-22] MEDS: BUSPAR 10 MG PO ×3 (10:45→20:06)
[2025-03-22] MEDS: PLAVIX 75 MG PO (10:45)
[2025-03-22] MEDS: ZOLOFT 150 MG PO (10:45)
[2025-03-22] MEDS: CARAFATE 1 GRAM PO (10:45)
[2025-03-22] MEDS: ANTIVERT 12.5 MG PO (10:45)
[2025-03-22] MEDS: COREG 12.5 MG PO ×2 (10:48→20:07)
[2025-03-22 11:01] LABS: Glucose - Point of Care 176 mg/dl (70-99)
[2025-03-22 13:09] LABS: Glucose - Point of Care 237 mg/dl (70-99)
[2025-03-22] MEDS: NOVOLOG FLEXPEN-LOW RESISTANCE 2 UNITS SC (13:09)
--- NOTE | 2025-03-22 13:19 | W.PN.HOSP.TC ---
Addendum entered and electronically signed by Mary Grace Foster MD 03/23/25 12:14:
*please ignore addendum, Na stable
Addendum entered and electronically signed by Mary Grace Foster MD 03/23/25 11:46:
Hyponatremia
-stable
Original Note:
Today's Communication/Plan
-
monitor BGL overnight
Assessment / Plan
Assessment / Plan
70 y/o man with hx essential HTN, COPD, NPH s/p shunt, PAD, seizure, HLD, CVA, IDDM presents to the ER with vomiting and elevated blood sugars found to be in DKA. AG on admit 24, now closed and patient on subQ insulin.
Chest/Abdomen X-Ray
IMPRESSION:
1. Pulmonary vasculature is mildly increased. Please correlate for signs of congestive heart failure
2. There is no evidence of small bowel obstruction or perforation
3. There are calcifications in both kidneys which are linearly oriented from the renal pelvis. These could be vascular calcifications versus developing a developing staghorn calcification
# DKA
Patient normally on Lantus insulin 25 units in the morning and 8 units in the evening
-s/p Insulin gtt with resolution of gap and conversion to subQ insulin, home dosing resumed. Possible gastroenteritis triggered DKA
-A1c = 10.4%
-pre-meal insulin started
-patient hypoglycemic morning morning 03/22; may have not eaten last night. I appreciate DM ACCOUNTING MACHINE SERVICER - continue current regimen, hold if low PO intake. Will keep another ngiht to monitor him on this regimen
# Nausea and vomiting
-*no bloody vomitus witnessed overnight
-obstruction series nl
-change IV PPI gtt to once daily
-TELECOMMUNICATOR SUPERVISOR Plavix resumed with stable Hg
[facility] resident, heavy assist at baseline
-PT recommends back to LTC with PT
JESSE
-s/p fluids
-resolved
# COPD -Stable
Essential HTN
-resume TELECOMMUNICATOR SUPERVISOR Coreg
-resume amlodipine today
-likely resume LIsinopril by DC
# Chronic anemia
# Hyperlipidemia-continue Zetia, statin
# Hypothyroidism-continue levothyroxine 50 mcg daily
# History of CVA- resume Plavix, continue Zetia, statin
# Chronic pain-narcotic dependent
# History of WEIGHT LOSS COUNSELOR shunt
# GERD-on Carafate and PPI as outpatient. Resume Carafate, IV PPI
# Peripheral artery disease
# Cognitive dysfunction
# Anxiety and depression-continue BuSpar, Depakote, sertraline
# DVT prophylaxis- start lovenox subQ as no e/o bleeding
DNR - confirmed with family
Anticipated Discharge: 24 - 48 hours
Subjective/Interval History
-
Date of Service: March 22, 2025
patient tired this morning
states he didn't sleep well last night
denies pain
BGL was low this morning
Objective Data
-
Vital Signs:
Vital Signs
Temp Pulse Resp BP Pulse Ox
98.4 F 62 18 160/80 98
03/21/25 23:00 03/22/25 09:00 03/22/25 09:34 03/22/25 09:34 03/22/25 09:00
I&O
03/21/25 03/22/25 03/23/25
06:59 06:59 06:59
Intake Total 480 / 480
Balance 480 / 480
Review of Systems
-
History Source: Patient
All other systems: Reviewed and negative
Physical Exam
-
General: No Apparent Distress
HEENT: PERRLA
Respiratory: Clear to Auscultation; Negative Wheezes
Cardiac: Regular Rhythm and S1/S2
GI: Soft and Nontender
Musculoskeletal: No Edema
Skin: Warm and Dry; Negative Rash
Neuro: AO x 3
Psych: Calm
Data Reviewed
-
Diagnostic Radiology: Report Reviewed by me
Labs: Labs Reviewed by me
[2025-03-22 15:51] VITALS: BP 126/52; BP 127/74
[2025-03-22] MEDS: NORVASC PO (15:53)
[2025-03-22 17:01] LABS: Glucose - Point of Care 271 mg/dl (70-99)
[2025-03-22] MEDS: NOVOLOG FLEXPEN 3 UNITS SC (18:03)
[2025-03-22] MEDS: NOVOLOG FLEXPEN-LOW RESISTANCE 3 UNITS SC (18:03)
[2025-03-22] MEDS: LOVENOX 40 MG SC (18:03)
--- NOTE | 2025-03-22 18:40 | PTCARENOTE ---
Diabetes nurse practitioner consulted for hypoglycemia in the am. RN made sure patient taking in all meals- now glucose has stabilized. Plan is to d/c back to previous facility tomorrow.
[2025-03-22] MEDS: MELATONIN 10 MG PO (20:06)
[2025-03-22] MEDS: ZETIA 10 MG PO (20:06)
[2025-03-22] MEDS: DEPAKOTE (12 HR RELEASE) 500 MG PO (20:06)
[2025-03-22] MEDS: CRESTOR 40 MG PO (20:07)
[2025-03-22 21:33] LABS: Glucose - Point of Care 299 mg/dl (70-99)
[2025-03-22] MEDS: LANTUS 0.08 UNITS SC (22:37)
[2025-03-22 23:00] VITALS: BP 148/56
[2025-03-23 02:53] LABS: Glucose - Point of Care 188 mg/dl (70-99)
[2025-03-23] MEDS: SYNTHROID 50 MCG PO (05:54)
[2025-03-23 07:00] VITALS: BP 144/67
[2025-03-23] MEDS: ZOLOFT 150 MG PO (07:39)
[2025-03-23] MEDS: NSS (PRESERVATIVE FREE) 10 ML IV (07:39)
[2025-03-23] MEDS: PLAVIX 75 MG PO (07:39)
[2025-03-23] MEDS: DEPAKOTE (12 HR RELEASE) 500 MG PO (07:39)
[2025-03-23] MEDS: CARAFATE 1 GRAM PO (07:39)
[2025-03-23] MEDS: PROTONIX IV 40 MG IV (07:41)
[2025-03-23] MEDS: BUSPAR 10 MG PO (07:57)
[2025-03-23] MEDS: ANTIVERT 12.5 MG PO (07:57)
[2025-03-23] MEDS: NORVASC 10 MG PO (08:07)
[2025-03-23] MEDS: COREG 12.5 MG PO (08:07)
[2025-03-23 08:08] LABS: Glucose - Point of Care 127 mg/dl (70-99)
--- NOTE | 2025-03-23 09:13 | CM ---
Chart reviewed and patient to return to [facility] when stable, updated clinicals faxed to [facility] today. Patient with Dementia diagnosis, nonambulatory and 2 person assist.
[facility]
Report [phone]
[2025-03-23] MEDS: LANTUS 0.25 UNITS SC (09:33)
[2025-03-23] MEDS: NOVOLOG FLEXPEN-LOW RESISTANCE SC (09:34)
[2025-03-23] MEDS: NOVOLOG FLEXPEN 3 UNITS SC ×2 (09:36→13:11)
[2025-03-23] MEDS: ZESTRIL 20 MG PO (11:36)
--- NOTE | 2025-03-23 11:40 | W.PN.HOSP.TC ---
Addendum entered and electronically signed by Mary Grace Foster MD 03/23/25 12:15:
Sacrum Stage 1 Pressure Injury
-appreciate wound care
Original Note:
Today's Communication/Plan
-
OK for DC
Assessment / Plan
Assessment / Plan
70 y/o man with hx essential HTN, COPD, NPH s/p shunt, PAD, seizure, HLD, CVA, IDDM presents to the ER with vomiting and elevated blood sugars found to be in DKA. AG on admit 24, now closed and patient on subQ insulin.
Chest/Abdomen X-Ray
IMPRESSION:
1. Pulmonary vasculature is mildly increased. Please correlate for signs of congestive heart failure
2. There is no evidence of small bowel obstruction or perforation
3. There are calcifications in both kidneys which are linearly oriented from the renal pelvis. These could be vascular calcifications versus developing a developing staghorn calcification
# DKA
Patient normally on Lantus insulin 25 units in the morning and 8 units in the evening
-s/p Insulin gtt with resolution of gap and conversion to subQ insulin, home dosing resumed. Possible gastroenteritis triggered DKA
-A1c = 10.4%
-pre-meal insulin started
-patient hypoglycemic morning morning 03/22 after not eating dinner. Appreciate DM ONLINE PROJECT MANAGER - continue current regimen and hold insulin if not eating
# Nausea and vomiting
-*no bloody vomitus witnessed overnight
-obstruction series nl
-change IV PPI gtt to once daily
-ROLL TABLE OPERATOR Plavix resumed with stable Hg
[facility] resident, heavy assist at baseline
-PT recommends back to LTC with PT
JESSE
-s/p fluids
-resolved
# COPD -Stable
Essential HTN
-resume ROLL TABLE OPERATOR Coreg
-resume amlodipine today
-likely resume LIsinopril by DC
# Chronic anemia
# Hyperlipidemia-continue Zetia, statin
# Hypothyroidism-continue levothyroxine 50 mcg daily
# History of CVA- resume Plavix, continue Zetia, statin
# Chronic pain-narcotic dependent
# History of BUSBOY shunt
# GERD-on Carafate and PPI as outpatient. Resume Carafate, IV PPI
# Peripheral artery disease
# Cognitive dysfunction
# Anxiety and depression-continue BuSpar, Depakote, sertraline
# DVT prophylaxis- start lovenox subQ as no e/o bleeding
DNR - confirmed with family
Anticipated Discharge: Today
Subjective/Interval History
-
Date of Service: March 23, 2025
feeling well
eating and drinking OK
Objective Data
-
Vital Signs:
Vital Signs
Temp Pulse Resp BP Pulse Ox
97.9 F 67 17 144/67 96
03/23/25 07:00 03/23/25 07:00 03/23/25 07:00 03/23/25 08:07 03/23/25 07:00
I&O
03/22/25 03/23/25 03/24/25
06:59 06:59 06:59
Intake Total 660 / 660
Balance 660 / 660
Review of Systems
-
History Source: Patient
All other systems: Reviewed and negative
Physical Exam
-
General: No Apparent Distress
HEENT: PERRLA
Respiratory: Clear to Auscultation; Negative Wheezes
Cardiac: Regular Rhythm and S1/S2
GI: Soft and Nontender
Musculoskeletal: No Edema
Skin: Warm and Dry; Negative Rash
Neuro: AO x 3
Psych: Calm
Data Reviewed
-
Diagnostic Radiology: Report Reviewed by me
Labs: Labs Reviewed by me
[2025-03-23 11:55] LABS: Glucose - Point of Care 183 mg/dl (70-99)
--- NOTE | 2025-03-23 12:01 | W.DS.TRANS ---
DC Summary - Heel Former
-
Discharge Instructions:
Discharge Diagnosis/Procedures Diabetic Ketoacidosis; Gastroenteritis
Diet Diabetic, Carb Controlled
Activity As tolerated
Driving Restrictions No driving
Bathing Restrictions None
Instructions:
Stand-Alone Forms:
Changes to Home Medications: Yes
Discharge Medications:
DC Medications w/original date entered in [employer]
acetaminophen 325 mg tablet (Tylenol) 650 mg PO Q4HPRN PRN temp>100F 06/30/22
amlodipine 10 mg tablet (Norvasc) 10 mg PO DAILY Blood Pressure 06/30/22
bisacodyl 10 mg rectal suppository (Dulcolax (bisacodyl)) 10 mg TN DAILYPRN PRN if mom is ineffective after 24hrs 06/30/22
carvedilol 12.5 mg tablet (Coreg) 12.5 mg PO BID Blood Pressure 06/30/22
clopidogrel 75 mg tablet (Plavix) 75 mg PO DAILY Blood Clot Prevention/Tx 06/30/22
ezetimibe 10 mg tablet (Zetia) 10 mg PO HS High Cholesterol 06/30/22
ferrous sulfate 325 mg (65 mg iron) tablet 325 mg PO DAILY Supplement 06/30/22
insulin glargine 100 unit/mL (3 mL) subcutaneous pen (Lantus Solostar U-100 Insulin) 25 unit SC DAILY Diabetes 06/30/22
levothyroxine 50 mcg tablet (Synthroid) 50 mcg PO DAILY Thyroid 06/30/22
magnesium hydroxide 400 mg/5 mL oral suspension (Milk of Magnesia) 30 ml PO [id number] PRN if no bm x 3 days 06/30/22
meclizine 12.5 mg tablet 12.5 mg PO DAILY Allergies 06/30/22
sodium phosphates 19 gram-7 gram/118 mL enema (Fleet Enema) 118 ml TN DAILYPRN PRN if dulcolax is ineffective after 24hrs 06/30/22
insulin aspart U-100 100 unit/mL (3 mL) subcutaneous pen (Novolog FlexPen U-100 Insulin aspart) 4 sliding scale dose SC ACHS Diabetes 08/14/23
acetaminophen 325 mg tablet 650 mg PO [id number] PRN mild pain 02/04/24
buspirone 10 mg tablet 10 mg PO TID Mental Health/Anxiety 02/04/24
cholecalciferol (vitamin D3) 125 mcg (5,000 unit) tablet 125 mcg PO DAILY Supplement 02/04/24
divalproex 500 mg tablet,delayed release 500 mg PO HS 02/04/24
lisinopril 40 mg tablet 40 mg PO DAILY Blood Pressure 02/04/24
melatonin 10 mg tablet 10 mg PO HS Sleep 02/04/24
pantoprazole 20 mg tablet,delayed release 20 mg PO DAILY Gastrointestinal Issue 02/04/24
sertraline 50 mg tablet 150 mg PO DAILY Mental Health/Anxiety 02/04/24
sucralfate 1 gram tablet 1 g PO DAILY Gastrointestinal Issue 02/04/24
insulin glargine 100 unit/mL (3 mL) subcutaneous pen (Lantus Solostar U-100 Insulin) 8 unit SC HS Diabetes 09/11/24
oxycodone 10 mg tablet 10 mg PO Q8HPRN PRN severe pain #5 tabs 11/03/24
benzonatate 100 mg capsule 100 mg PO TIDPRN PRN cough 03/19/25
collagenase clostridium histo. 250 unit/gram topical ointment (Santyl) 1 applic topical DAILY right 5th metatarsal 03/19/25
collagenase clostridium histo. 250 unit/gram topical ointment (Santyl) 1 applic topical DAILYPRN PRN right 5th matatarsal 03/19/25
divalproex 250 mg tablet,delayed release 500 mg PO DAILY 03/19/25
rosuvastatin 40 mg tablet (Crestor) 40 mg PO HS 03/19/25
therapeutic multivitamin 1 tab PO DAILY 03/19/25
Home Medication Changes
addition of aspart 3 units pre-meals
stop oxycodone
decrease Lisinopril from 40mg daily to 20mg daily
Pending Results: No
--- NOTE | 2025-03-23 12:44 | PN.DE.MGMTRT ---
Insulin Management
- -
03/23/2025: Diabetes Management Consult Follow up
70 year old male who presented to the ED from his NH with vomiting and elevated blood sugars found to be in DKA. AG on admit 24, now closed and patient on subQ insulin. PMH: HTN, COPD, NPH s/p shunt, PAD, seizure, HLD, CVA,HLD, Hypothyroidism,
GERD, PVD, Anemia, Arthritis, recurrent falls, Anxiety, h/o alcohol abuse in remission, dysarthria following stroke, oropharyngeal dysphagia, ataxia following stroke, diabetic foot ulcer, cognitive dysfunction, history of pericardial effusion,
diabetic neuropathy and IDDM. Prior to admission was taking Lantus 25 units in the morning and 8 units in the evening. A1C 10.4% up from 8.1% on 11/02/24, Cr 1.0, eGFR >60
Pt is awake, alert, disoriented, unable to discuss diabetes care plan due to dementia.No family at bedside
No further hypoglycemia, glucose 237 to 299. Did receive lantus 8 units last evening. Fasting glucose 127.
Of note, Pt is able to feed himself if tray is opened and set up.
Will make no changed to current regimen: Lantus 25 units in AM and 8 units @ HS and NovoLog 3 units AC with low corrective.
Discussed with Nurse and instructed to only give insulin if meal try has arrived and someone is at bedside feeding the patient, otherwise to hold the AC insulin.
Will cont to monitor
Diabetes History
- -
Type of Diabetes: 2 requiring insulin
Pre-Admission Diabetes Regimen
Lab Results
Hemoglobin A1c 10.4 % (4.0-5.6) H 03/19/25 04:25
Insulin Pump Settings
IP Diabetes Regimen
03/22/25 03/22/25 03/22/25
13:08 17:00 21:32
POC Glucose 237 H 271 H 299 H
03/23/25 03/23/25 03/23/25
02:52 08:06 11:54
POC Glucose 188 H 127 H 183 H
Meal type: Breakfast
Amount consumed: 75%
Patient Education
[2025-03-23] MEDS: NOVOLOG FLEXPEN-LOW RESISTANCE 1 UNITS SC (13:10)
--- NOTE | 2025-03-23 13:58 | W.DCSUMMARY ---
Discharge Summary
Discharge Data
Date of Admission: 03/19/25
Date of Discharge: 03/23/25
-
Pending Results: No
Hospital Course
Discharging Physician : Dr. Mary Grace Foster
[facility]
Primary care physician : Dr. Jus Cárdenas
Principal Discharge diagnosis : Diabetic Ketoacidosis, Gastroenteritis
Hospital Course :
Mr. Jimenez Schmitz is a 70 y/o man with hx essential HTN, COPD, NPH s/p shunt, PAD, seizure, HLD, CVA, IDDM presents to the ER with vomiting and elevated blood sugars. Triage vitals stable. Labs with glucose 620, CO2 20 --> 15, K+ 5.3. UA with
ketones. He was admitted to IMU for treatment of DKA. Gap closed quickly with IV insulin and he was transitioned to subQ insulin on HD 1. Patient's nausea and vomiting improved and his diet was advanced. His A1c is 10.4%. Aspart 3 units added
pre-meals. He had an episode of hypoglycemia but this was in setting of not eating a meal. DM MODELING DIRECTOR consulted and advised to continue current regimen. Patient's BGL will be monitored closely at SNF.
Patient's blood pressure medications were initially held then resumed. His SBP was 140's on Coreg and Amlodipine, off of Lisinopril 40mg. Therefore 1/2 dose Lisinopril (20mg) resumed at DC and BP to be monitored at SNF. Can increase Lisinopril
dosing back to prior regimen if needed.
Please see daily progress notes for more details.
Time spent on discharge was 35 minutes.
Important imaging findings :
Procedure findings :
Discharge Plan
-
Patient Disposition: [facility]
Discharge Orders:
Discharge Patient (As Directed); Ordered 03/23/25
Ordered By: Mary Grace Foster
Discharge Date and Time
Print Language: SPANISH
--- NOTE | 2025-03-23 14:04 | W.DCSUMMARY ---
Discharge Summary
Discharge Data
Date of Admission: 03/19/25
Date of Discharge: 03/23/25
-
Pending Results: No
Hospital Course
Hospital Course
Discharging Physician : Dr. Mary Grace Foster
Disposition : LTC SNF
Primary care physician : Dr. Jus Cárdenas
Principal Discharge diagnosis : Diabetic Ketoacidosis, Gastroenteritis
Hospital Course :
Mr. Jimenez Schmitz is a 70 y/o man with hx essential HTN, COPD, NPH s/p shunt, PAD, seizure, HLD, CVA, IDDM presents to the ER with vomiting and elevated blood sugars. Triage vitals stable. Labs with glucose 620, CO2 20 --> 15, K+ 5.3. UA with
ketones. He was admitted to IMU for treatment of DKA. Gap closed quickly with IV insulin and he was transitioned to subQ insulin on HD 1. Patient's nausea and vomiting improved and his diet was advanced. His A1c is 10.4%. Aspart 3 units added
pre-meals. He had an episode of hypoglycemia but this was in setting of not eating a meal. DM LOSS PREVENTION DETECTIVE consulted and advised to continue current regimen. Patient's BGL will be monitored closely at SNF.
Patient's blood pressure medications were initially held then resumed. His SBP was 140's on Coreg and Amlodipine, off of Lisinopril 40mg. Therefore 1/2 dose Lisinopril (20mg) resumed at [place] and BP to be monitored at SNF. Can increase Lisinopril
dosing back to prior regimen if needed.
Please see daily progress notes for more details.
Time spent on discharge was 35 minutes.
Important imaging findings :
Procedure findings :
Discharge Plan
-
Patient Disposition: [facility]pc/SNF
Discharge Diagnosis/Procedures: Diabetic Ketoacidosis; Gastroenteritis
Diet: Diabetic, Carb Controlled
Activity: As tolerated
Driving Restrictions: No driving
Bathing Restrictions: None
Referrals:
Jus Cárdenas MD [Family Provider]
Additional Discharge Medication Instructions: You are started on Aspart 3 units before meals with sliding scale. Continue to check blood sugar levesl 4x/day. Hold insulin if low or not eating well.
Your Lisinopril dose is decreased from 40mg to 20mg daily.
Prescriptions:
New
insulin aspart U-100 100 unit/mL (3 mL) Insulin Pen
3 unit SC AC Qty: 15 0RF
Continued
acetaminophen [Tylenol] 325 mg Tablet
650 mg PO Q4HPRN PRN (Reason: temp>100F)
carvedilol [Coreg] 12.5 mg Tablet
12.5 mg PO BID
meclizine 12.5 mg Tablet
12.5 mg PO DAILY
clopidogrel [Plavix] 75 mg Tablet
75 mg PO DAILY
magnesium hydroxide [Milk of Magnesia] 400 mg/5 mL Suspension
30 ml PO [id number] PRN (Reason: if no bm x 3 days)
amlodipine [Norvasc] 10 mg Tablet
10 mg PO DAILY
levothyroxine [Synthroid] 50 mcg Tablet
50 mcg PO DAILY
bisacodyl [Dulcolax (bisacodyl)] 10 mg Suppository
10 mg FL DAILYPRN PRN (Reason: if mom is ineffective after 24hrs)
ferrous sulfate 325 mg (65 mg iron) Tablet
325 mg PO DAILY
Fleet Enema 19-7 gram/118 mL Enema
118 ml FL DAILYPRN PRN (Reason: if dulcolax is ineffective after 24hrs)
ezetimibe [Zetia] 10 mg Tablet
10 mg PO HS
insulin glargine [Lantus Solostar U-100 Insulin] 100 unit/mL (3 mL) Insulin Pen
25 unit SC DAILY
acetaminophen 325 mg Tablet
650 mg PO [id number] PRN (Reason: mild pain)
sucralfate 1 gram tablet
1 g PO DAILY
divalproex 500 mg tablet,delayed release (DR/EC)
500 mg PO HS
pantoprazole 20 mg Tablet,Delayed Release (Dr/Ec)
20 mg PO DAILY
buspirone 10 mg tablet
10 mg PO TID
sertraline 50 mg tablet
150 mg PO DAILY
cholecalciferol (vitamin D3) 125 mcg (5,000 unit) Tablet
125 mcg PO DAILY
melatonin 10 mg Tablet
10 mg PO HS
insulin glargine [Lantus Solostar U-100 Insulin] 100 unit/mL (3 mL) Insulin Pen
8 unit SC HS
therapeutic multivitamin Tablet
1 tab PO DAILY
benzonatate 100 mg Capsule
100 mg PO TIDPRN PRN (Reason: cough)
Santyl 250 unit/gram Ointment
1 applic TOPICAL DAILY
Santyl 250 unit/gram Ointment
1 applic TOPICAL DAILYPRN PRN (Reason: right 5th matatarsal)
rosuvastatin [Crestor] 40 mg Tablet
40 mg PO HS
divalproex 250 mg tablet,delayed release (DR/EC)
500 mg PO DAILY
Changed
lisinopril 40 mg Tablet
20 mg PO DAILY Qty: 0 0RF
insulin aspart U-100 [Novolog FlexPen U-100 Insulin] 100 unit/mL (3 mL) Insulin Pen
1 sliding scale dose SC ACHS Qty: 15 0RF
Rx Instructions:
101-150=4units, 151-200=6units, 201-250=8units
Discontinued
oxycodone 10 mg Tablet
10 mg PO Q8HPRN PRN (Reason: severe pain) Qty: 5 0RF
Discharge Orders:
Discharge Patient (As Directed); Ordered 03/23/25
Ordered By: Mary Grace Foster
Discharge Date and Time
Print Language: BULGARIAN
[2025-03-23 15:15] VITALS: BP 156/70
== END 2025-03-23 15:26 | DRG 391 ==
LOC: 4 WEST ACU 09:02
PROVIDERS: ADMITTING PHYSICIAN Hospitalist; ATTENDING PHYSICIAN Student in an Organized Health Care Education/Training Program; EMERGENCY PHYSICIAN Student in an Organized Health Care Education/Training Program; FAMILY PHYSICIAN Internal Medicine
DX: K52.9 Noninfective gastroenteritis and colitis, unspecified (principal); E11.10 Type 2 diabetes mellitus with ketoacidosis without coma; F11.20 Opioid dependence, uncomplicated; G91.2 (Idiopathic) normal pressure hydrocephalus; E11.51 Type 2 diabetes mellitus with diabetic peripheral angiopathy without gangrene; I10 Essential (primary) hypertension; J44.9 Chronic obstructive pulmonary disease, unspecified; E78.00 Pure hypercholesterolemia, unspecified; I69.393 Ataxia following cerebral infarction; E11.40 Type 2 diabetes mellitus with diabetic neuropathy, unspecified; Z66 Do not resuscitate; Z98.2 Presence of cerebrospinal fluid drainage device; Z88.0 Allergy status to penicillin; Z88.5 Allergy status to narcotic agent; Z79.890 Hormone replacement therapy; Z79.4 Long term (current) use of insulin; Z79.899 Other long term (current) drug therapy; L89.151 Pressure ulcer of sacral region, stage 1; E03.9 Hypothyroidism, unspecified; D64.9 Anemia, unspecified; G89.29 Other chronic pain; K21.9 Gastro-esophageal reflux disease without esophagitis; F41.9 Anxiety disorder, unspecified; F32.A Depression, unspecified; F10.11 Alcohol abuse, in remission
CPT/HCPCS: 74022; 80048; 80053; 80164; 81003; 81015; 82010; 82805; 82962; 83036; 85014; 85018; 85025; 85027; 87070; 87086; 92610; 93306; 96365; 96366; 96367; 97110; 97163; 97167; 97530; 99284